=== PATIENT | female | born 1945 | race Caucasian/White ===

== ENCOUNTER 2019-06-15 06:57 | Outpatient (CLI) | payer MEDICARE, SELFPAY ==
[2019-06-15 07:25] LABS: Basophils Percent Auto 0.8 % (0.2-1.2); Eosinophils Percent Auto 1.3 % (0-4.4); Hematocrit 44.1 % (37.0-47.0); Hemoglobin 14.4 g/dL (12.0-15.0); Immature Granulocyte Absolute 0.01 K/mm3 (0.00-0.031); Immature Granulocyte Percent A 0.4 % (0-0.5); Immature Platelet Fraction Pct 6.6 % (0.9-11.2); Lymphocytes Absolute Auto 0.73 K/mm3 (0.9-3.2); Lymphocytes Percent Auto 30.5 % (18.3-44.2); Mean Corpuscular HGB Conc 32.7 g/dl (32-36); Mean Corpuscular Hemoglobin 30.4 pg (26-34); Mean Corpuscular Volume 93.2 fl (80-100); Mean Platelet Volume 11.4 fl (7.4-10.4); Monocytes Absolute Auto 0.3 K/mm3 (0.1-0.6); Monocytes Percent Auto 13.8 % (2.6-8.5); Neutrophils Absolute Auto 1.3 K/mm3 (1.3-6.7); Neutrophils Percent Auto 53.2 % (45.5-73.1); Platelet Count Result 123 k/mm3 (150-375); Red Blood Count 4.73 M/mm3 (4.2-5.4); Red Cell Distribution Width 11.9 % (11.5-14.5); White Blood Count 2.4 K/mm3 (4.5-10.0)
[2019-06-15 07:35] LABS: Alanine Aminotransferase 64 U/L (4-35); Albumin Level 4.3 g/dL (3.5-5.1); Alkaline Phosphatase 77 U/L (38-126); Aspartate Amino Transferase 68 U/L (14-36); Bilirubin,Total 0.6 mg/dL (0.2-1.3); Blood Urea Nitrogen 13 mg/dL (7-17); Calcium 9.2 mg/dL (8.4-10.2); Carbon Dioxide 31 mmol/L (22-30); Chloride 102 mmol/L (98-107); Cholesterol 192 mg/dL (0-200); Estimated Glomerular Filt Rate > 60; Glucose 88 mg/dL (65-105); HDL Direct 45 mg/dL; Lactate Dehydrogenase 518 U/L (313-618); Magnesium 1.8 mg/dL (1.6-2.3); Potassium 4.1 mmol/L (3.4-5.0); Sodium 138 mmol/L (137-145); Triglycerides 145 mg/dL (<150)
[2019-06-15 07:46] LABS: LDL Cholesterol Direct 111 mg/dL
[2019-06-15 08:20] LABS: Free T4 Free Thyroxine 1.44 ng/mL (0.78-2.19); Vitamin D 25 Hydroxy 61.7 ng/mL
[2019-06-15 08:46] LABS: Folic Acid > 20.0 ng/mL (2.76->20)
== END 2019-06-15 06:58 | disposition home or self-care (01) ==
LOC: ANHLAB 07:01
PROVIDERS: PCP Internal Medicine; Visit Provider Internal Medicine
DX: D64.9 Anemia, unspecified (principal); I10 Essential (primary) hypertension; E78.5 Hyperlipidemia, unspecified; E03.9 Hypothyroidism, unspecified; E53.8 Deficiency of other specified B group vitamins; E55.9 Vitamin D deficiency, unspecified
CPT/HCPCS: 36415; 80053; 80061; 82306; 82607; 82746; 83615; 83735; 84439; 84443; 85025; 85055

== ENCOUNTER 2019-10-02 01:27 | Outpatient (CLI) | payer MEDICARE, SELFPAY ==
[2019-10-02 18:35] LABS: SARS-CoV-2 RNA PCR Negative
== END 2019-10-02 01:28 | disposition home or self-care (01) ==
LOC: ANHCOVIDDT 01:28
PROVIDERS: PCP Internal Medicine; Visit Provider Internal Medicine Gastroenterology
DX: Z01.812 Encounter for preprocedural laboratory examination (principal); Z11.59 Encounter for screening for other viral diseases
CPT/HCPCS: 87635; C9803; U0003

== ENCOUNTER 2019-10-04 01:42 | Day surgery (SDC) | payer MEDICARE, SELFPAY ==
[2019-09-26 13:01] VITALS: BMI 26.5
[2019-10-04 09:03] VITALS: BP 149/80; PULSE 78; RESP 18; TEMP 36.3
--- NOTE | 2019-10-04 09:13 | PM.IMHP ---
H&P: HPI History of Present Illness Date/Time: 10/04/19 09:13 Chief complaint: Colon Polyp Narrative: Reason for visit is colonoscopy. This very pleasant lady's here for colonoscopy at the request of the primary physician. The patient was examined. Impression: Screening and surveillance colonoscopy. The patient's history adenomatous colon polyps. HLD. History of thyroiditis status post biopsy and levothyroxine treatment. Recommendation: Colonoscopy. History: Very pleasant lady's being evaluated for screening and surveillance colonoscopy. She has a history of numerous colon polyps. The GI review systems is negative. Physical examination: General: very pleasant patient in no acute distress. HEENT: Head was normocephalic sclerae is clear mouth without masses neck was supple. Heart: Rate rhythm regular without S3 or S4. Lungs: CTA. Abdomen: Soft with no guarding or rigidity. Bowel sounds were active. Neurologic: Cranial nerves 2 through 12 intact. No focal defects. No clonus. Musculoskeletal system: Revealed no joint tenderness or swelling no muscle atrophy. Extremities: Reveal no significant edema. Skin: Warm and dry with normal turgor. Mental status: intact. Patient is alert and oriented. Review of Systems Review of Systems: All systems reviewed & are unremarkable except as noted in HPI and below PMFSH Social History Social History Smoking status: Former smoker Second hand tobacco smoke exposure: No Smoking end date: 02/22/76 Alcohol intake: current Substance use: never Gender identity (if verbalized by the patient): Female Meds Home Medications and Allergies Home Medications Medication Instructions Recorded Confirmed Type L. gasseri-B. bifidum-B longum 1.5 1 cap PO DAILY 01/30/19 10/04/19 History billion cell capsule ascorbic acid (vitamin C) 500 mg 500 mg PO DAILY 01/30/19 10/04/19 History tablet calcium 600 mg-D3 800 unit-mag11 1 tablet PO DAILY 01/30/19 10/04/19 History 50 aa-huix-zdrzhd-rayna-s.borat tablet levothyroxine 112 mcg tablet 112 mcg PO DAILY 01/30/19 10/04/19 History multivitamin 1 tablet PO DAILY 01/30/19 10/04/19 History potassium iodide 65 mg tablet 130 mg PO DAILY 01/30/19 10/04/19 History rosuvastatin 5 mg tablet 5 mg PO DAILY 01/30/19 10/04/19 History calcium polycarbophil 625 mg tablet 1,250 mg PO BID 06/14/19 10/04/19 History lysine 500 mg tablet 500 mg PO DAILY 06/14/19 10/04/19 History Allergies Allergy/AdvReac Type Severity Reaction Status Date / Time No Known Allergies Allergy Unknown Verified 10/04/19 09:01 Vital Signs Vital Signs - 24 hr 10/04/19 09:03 Temperature 36.3 C L Pulse Rate 78 Respiratory Rate 18 Blood Pressure 149/80 H
[2019-10-04] MEDS: LACTATED RINGERS 1,000 ML 150 ML IV CONT (09:19)
--- NOTE | 2019-10-04 09:21 | WPDANESEPPF ---
Anes - Initial Pre Proc Eval Procedure: Operation Date: 10/04/19 09:30 Proposed Procedures p Colonoscopy - Willi Solano DO Date/Time: 10/04/19 09:21 Surgeon: Willi Solano DO Pre Op Diagnosis: Colon Polyp Patient Data Age: 74 Gender: F Height: 5 ft 3 in Weight: 70.2 kg Last Vital Signs Temp 36.3 C L 10/04/19 09:03 Pulse 78 10/04/19 09:03 Resp 18 10/04/19 09:03 BP 149/80 H 10/04/19 09:03 Allergies Allergy/AdvReac Type Severity Reaction Status Date / Time No Known Allergies Allergy Unknown Verified 10/04/19 09:01 Home Medications Medication Instructions Recorded Confirmed Type L. gasseri-B. bifidum-B longum 1.5 1 cap PO DAILY 01/30/19 10/04/19 History billion cell capsule ascorbic acid (vitamin C) 500 mg 500 mg PO DAILY 01/30/19 10/04/19 History tablet calcium 600 mg-D3 800 unit-mag11 1 tablet PO DAILY 01/30/19 10/04/19 History 50 ej-fixi-zqolsu-rayna-s.borat tablet levothyroxine 112 mcg tablet 112 mcg PO DAILY 01/30/19 10/04/19 History multivitamin 1 tablet PO DAILY 01/30/19 10/04/19 History potassium iodide 65 mg tablet 130 mg PO DAILY 01/30/19 10/04/19 History rosuvastatin 5 mg tablet 5 mg PO DAILY 01/30/19 10/04/19 History calcium polycarbophil 625 mg tablet 1,250 mg PO BID 06/14/19 10/04/19 History lysine 500 mg tablet 500 mg PO DAILY 06/14/19 10/04/19 History Patient hx anesthesia problems: none Family hx anesthesia problems: none PMFSH Past Medical History Medical History Anemia Elevated lipids Irritable bowel Thyroid disease Surgical History Surgical History H/O dilation and curettage H/O partial thyroidectomy H/O rotator cuff surgery History of knee replacement Hx of tonsillectomy [place] teeth removed Family History Family History Sibling Patient's sister is in good health Patient's brother is Father Patient's father is Carcinoma of colon Mother Family history of hypercholesterolemia Hypertension Cerebrovascular accident Social History Social History Smoking status: Former smoker Second hand tobacco smoke exposure: No Smoking end date: 02/22/76 Alcohol intake: current Substance use: never Gender identity (if verbalized by the patient): Female Anes - Eval Final PreProcedure Day of Procedure 10/04/19 09:21 Patient weight: overweight Heart: regular rate and rhythm Lungs: clear to auscultation Airway: Mallampati scale class II Neurological: alert and oriented Last oral intake: >/= 8 hours ASA classification: II Emergent: no Anesthetic plan: proceed Anesthesia type and monitoring: general GIVS and standard monitoring Informed Consent: The patient's anesthetic plan and its attendant risks and benefits were discussed with the patient/family/POA. Questions were solicited and answers provided to the satisfaction of the patient/family/POA.
[2019-10-04 10:20] VITALS: BP 84/44; PULSE 66; RESP 22; O2SAT 96
[2019-10-04 10:30] VITALS: BP 112/91; PULSE 72; RESP 22; O2SAT 96
[2019-10-04 10:40] VITALS: BP 117/62; PULSE 59; RESP 28; O2SAT 100
== END 2019-10-04 11:10 | disposition home or self-care (01) ==
PROVIDERS: PCP Internal Medicine; Visit Provider Internal Medicine Gastroenterology
PROC: 0DJD8ZZ Inspection of Lower Intestinal Tract, Via Natural or Artificial Opening Endoscopic (ICD-10-PCS; CPT 45378; principal; 2019-10-04 09:30)
DX: Z12.11 Encounter for screening for malignant neoplasm of colon (principal); D12.2 Benign neoplasm of ascending colon; K63.5 Polyp of colon; K57.30 Diverticulosis of large intestine without perforation or abscess without bleeding; E89.0 Postprocedural hypothyroidism; E78.5 Hyperlipidemia, unspecified; Z87.891 Personal history of nicotine dependence
CPT/HCPCS: 45380; 88305; J2001; J2704; J7120

== ENCOUNTER 2019-12-06 11:16 | Outpatient (CLI) | payer MEDICARE, SELFPAY ==
[2019-12-06 11:40] LABS: Basophils Percent Auto 0.4 % (0.2-1.2); Eosinophils Percent Auto 1.1 % (0-4.4); Hemoglobin 14.5 g/dL (12.0-15.0); Lymphocytes Absolute Auto 0.68 K/mm3 (0.9-3.2); Lymphocytes Percent Auto 25.8 % (18.3-44.2); Mean Corpuscular HGB Conc 34.5 g/dl (32-36); Mean Corpuscular Hemoglobin 31.7 pg (26-34); Mean Corpuscular Volume 91.7 fl (80-100); Monocytes Absolute Auto 0.4 K/mm3 (0.1-0.6); Neutrophils Absolute Auto 1.6 K/mm3 (1.3-6.7); Neutrophils Percent Auto 58.7 % (45.5-73.1); Platelet Count Result 144 k/mm3 (150-375); Red Blood Count 4.58 M/mm3 (4.2-5.4); White Blood Count 2.6 K/mm3 (4.5-10.0)
[2019-12-06 11:52] LABS: Alanine Aminotransferase 28 U/L (4-35); Albumin Level 4.3 g/dL (3.5-5.1); Alkaline Phosphatase 61 U/L (38-126); Anion Gap 7 mmol/L (8-16); Aspartate Amino Transferase 36 U/L (14-36); Bilirubin,Total 0.6 mg/dL (0.2-1.3); Blood Urea Nitrogen 15 mg/dL (7-17); Calcium 9.4 mg/dL (8.4-10.2); Carbon Dioxide 29 mmol/L (22-30); Chloride 102 mmol/L (98-107); Cholesterol 180 mg/dL (0-200); Estimated Glomerular Filt Rate > 60; Glucose 91 mg/dL (65-105); HDL Direct 48 mg/dL; Lactate Dehydrogenase 553 U/L (313-618); Sodium 138 mmol/L (137-145); Triglycerides 132 mg/dL (<150)
[2019-12-06 12:03] LABS: LDL Cholesterol Direct 106 mg/dL
[2019-12-06 12:33] LABS: Free T4 Free Thyroxine 1.27 ng/mL (0.78-2.19)
[2019-12-06 12:45] LABS: Hepatitis B Surface Antigen Negative (Negative)
[2019-12-06 12:51] LABS: HAV RESULT Negative (Negative); Hepatitis B Core IgM Result Negative (Negative)
[2019-12-06 13:03] LABS: Hepatitis C Virus Antibody Negative (Negative)
[2019-12-06 13:38] LABS: Folic Acid > 20.0 ng/mL (2.76->20)
== END 2019-12-06 11:17 | disposition home or self-care (01) ==
LOC: ANHLAB 11:18
PROVIDERS: PCP Internal Medicine; Visit Provider Internal Medicine
DX: D72.819 Decreased white blood cell count, unspecified (principal); R79.89 Other specified abnormal findings of blood chemistry; E03.9 Hypothyroidism, unspecified; E78.5 Hyperlipidemia, unspecified
CPT/HCPCS: 36415; 80053; 80061; 80074; 82607; 82746; 83615; 84439; 84443; 85025

== ENCOUNTER 2020-01-16 10:41 | Outpatient (CLI) | payer MEDICARE, SELFPAY ==
[2020-01-16 11:39] LABS: Add Urine Microscopic? YES; Appearance Urine Clear (Clear); Bilirubin Urine Negative (Negative); Blood Urine Negative (Negative); Color Urine Straw (Yellow); Glucose Urine UA Negative (Negative); Ketones Urine Negative (Negative); Leukocyte Esterase Ur Negative LEU/UL (Negative); Nitrate Urine Negative (Negative); Protein Urine Negative (Negative); RBC Urine 0-2 /hpf (0-2); Squamous Epithelial Cell Urine Rare /hpf (Few); Urobilinogen Urine Negative mg/dL (<2.0); WBC Urine 0-3 /hpf
== END 2020-01-16 10:42 | disposition home or self-care (01) ==
LOC: ANHLAB 10:42
PROVIDERS: PCP Internal Medicine; Visit Provider Internal Medicine
DX: R31.9 Hematuria, unspecified (principal)
CPT/HCPCS: 81001

== ENCOUNTER 2020-06-03 07:27 | Outpatient (CLI) | payer MEDICARE, SELFPAY ==
--- NOTE | ~2020-06-03 | MM_ITS ---
EXAMINATION: MM screening [facility] BI w akash HISTORY: Screening TECHNIQUE: Craniocaudal and mediolateral oblique 3-D tomosynthesis images were obtained and synthetic 2-D images were generated. CAD analysis was submitted and interpreted. COMPARISON: Comparison to multiple prior studies sequentially, with oldest reviewed study dated 10/2015. BREAST PARENCHYMAL COMPOSITION: There are scattered areas of fibroglandular density. FINDINGS: There is a subtle increase in number of indeterminate clustered calcifications in the upper outer quadrant of the left breast, middle third. The right breast is stable without evidence for mal ignancy. IMPRESSION: 1. Increase number of indeterminate clustered left breast calcifications, upper outer quadrant. 2. Magnification views recommended. BI-RADS Category 0: Incomplete: Needs additional imaging evaluation. Reviewed, dictated and finalized at location A.
== END 2020-06-03 07:28 | disposition home or self-care (01) ==
PROVIDERS: PCP Internal Medicine; Visit Provider Obstetrics & Gynecology
DX: Z12.31 Encounter for screening mammogram for malignant neoplasm of breast (principal); R92.8 Other abnormal and inconclusive findings on diagnostic imaging of breast
CPT/HCPCS: 77063; 77067

== ENCOUNTER 2020-06-27 12:28 | Outpatient (CLI) | payer MEDICARE, SELFPAY ==
--- NOTE | ~2020-06-27 | MM_ITS ---
EXAMINATION: MM diagnostic [facility] LT w akash HISTORY: Follow-up left breast calcifications TECHNIQUE: Additional 3-D tomosynthesis images of the left breast were performed and synthetic 2-D im ages were generated. CAD analysis was submitted and interpreted. COMPARISON: Comparison to multiple prior studies sequentially, with oldest reviewed study dated 01/21. BREAST PARENCHYMAL COMPOSITION: The breasts are heterogenously dense, which may obscure small masses. FINDINGS: There are benign-appearing scattered punctate calcifications in the upper aspect of the lef t breast which are not specifically clustered. There are no suspicious masses or architectural distor tion. IMPRESSION: 1. No evidence for malignancy in the left breast. Benign left breast calcifications. 2. Routine yearly screening mammogram and regular clinical breast examination are recommended. BI-RADS Category 2: Benign finding(s). Reviewed, dictated and finalized at location A. IMPRESSION: 1. No evidence for malignancy in the left breast. Benign left breast calcificat ions. 2. Routine yearly screening mammogram and regular clinical breast examination a re recommended. BI-RADS Category 2: Benign finding(s).
== END 2020-06-27 12:29 | disposition home or self-care (01) ==
PROVIDERS: PCP Internal Medicine; Visit Provider Obstetrics & Gynecology
DX: R92.8 Other abnormal and inconclusive findings on diagnostic imaging of breast (principal)
CPT/HCPCS: 77061; 77065; G0279

== ENCOUNTER 2020-08-01 06:47 | Outpatient (CLI) | payer MEDICARE, SELFPAY ==
[2020-08-01 07:51] LABS: Basophils Percent Auto 0.5 % (0.2-1.2); Eosinophils Percent Auto 0.9 % (0-4.4); Hematocrit 40.3 % (37.0-47.0); Hemoglobin 13.1 g/dL (12.0-15.0); Immature Granulocyte Absolute 0.27 K/mm3 (0.00-0.031); Immature Granulocyte Percent A 12.6 % (0-0.5); Lymphocytes Percent Auto 27.9 % (18.3-44.2); Mean Corpuscular HGB Conc 32.5 g/dl (32-36); Mean Corpuscular Hemoglobin 30.3 pg (26-34); Mean Corpuscular Volume 93.1 fl (80-100); Mean Platelet Volume 11.2 fl (7.4-10.4); Monocytes Absolute Auto 0.4 K/mm3 (0.1-0.6); Neutrophils Absolute Auto 0.8 K/mm3 (1.3-6.7); Neutrophils Percent Auto 38.1 % (45.5-73.1); Platelet Count Result 125 k/mm3 (150-375); Red Blood Count 4.33 M/mm3 (4.2-5.4); Red Cell Distribution Width 11.9 % (11.5-14.5); White Blood Count 2.2 K/mm3 (4.5-10.0)
[2020-08-01 09:32] LABS: Alanine Aminotransferase 23 U/L (4-35); Albumin Level 3.9 g/dL (3.5-5.1); Alkaline Phosphatase 46 U/L (38-126); Anion Gap 8 mmol/L (8-16); Aspartate Amino Transferase 35 U/L (14-36); Bilirubin,Total 0.4 mg/dL (0.2-1.3); Blood Urea Nitrogen 16 mg/dL (7-17); Carbon Dioxide 27 mmol/L (22-30); Chloride 107 mmol/L (98-107); Cholesterol 130 mg/dL (0-200); Estimated Glomerular Filt Rate > 60; Glucose 95 mg/dL (65-105); HDL Direct 43 mg/dL; Sodium 142 mmol/L (137-145); Triglycerides 62 mg/dL (<150)
[2020-08-01 09:42] LABS: LDL Cholesterol Direct 62 mg/dL
[2020-08-01 10:02] LABS: Thyroid Stimulating Hormone < 0.015 uIU/mL (0.465-4.680)
[2020-08-01 12:27] LABS: Folic Acid > 20.0 ng/mL (2.76->20)
[2020-08-01 12:50] LABS: Free T4 Free Thyroxine 1.48 ng/mL (0.78-2.19)
== END 2020-08-01 06:48 | disposition home or self-care (01) ==
PROVIDERS: PCP Internal Medicine; Visit Provider Internal Medicine
DX: R53.83 Other fatigue (principal); E03.9 Hypothyroidism, unspecified; E78.5 Hyperlipidemia, unspecified
CPT/HCPCS: 36415; 80053; 80061; 82607; 82746; 84439; 84443; 85025

== ENCOUNTER 2020-08-20 15:47 | Outpatient (CLI) | payer MEDICARE, SELFPAY ==
[2020-08-20 16:31] LABS: Basophils Percent Auto 0.4 % (0.2-1.2); Eosinophils Percent Auto 1.2 % (0-4.4); Hematocrit 41.6 % (37.0-47.0); Hemoglobin 13.5 g/dL (12.0-15.0); Immature Granulocyte Absolute 0.26 K/mm3 (0.00-0.031); Immature Granulocyte Percent A 10.5 % (0-0.5); Lymphocytes Absolute Auto 0.74 K/mm3 (0.9-3.2); Lymphocytes Percent Auto 29.8 % (18.3-44.2); Mean Corpuscular HGB Conc 32.5 g/dl (32-36); Mean Corpuscular Hemoglobin 29.7 pg (26-34); Mean Corpuscular Volume 91.6 fl (80-100); Monocytes Absolute Auto 0.5 K/mm3 (0.1-0.6); Monocytes Percent Auto 19.4 % (2.6-8.5); Neutrophils Percent Auto 38.7 % (45.5-73.1); Platelet Count Result 124 k/mm3 (150-375); Red Blood Count 4.54 M/mm3 (4.2-5.4); Red Cell Distribution Width 11.9 % (11.5-14.5); White Blood Count 2.5 K/mm3 (4.5-10.0)
[2020-08-20 16:38] LABS: Alanine Aminotransferase 52 U/L (4-35); Albumin Level 4.3 g/dL (3.5-5.1); Alkaline Phosphatase 81 U/L (38-126); Anion Gap 8 mmol/L (8-16); Aspartate Amino Transferase 56 U/L (14-36); Bilirubin,Total 0.4 mg/dL (0.2-1.3); Blood Urea Nitrogen 10 mg/dL (7-17); Calcium 9.3 mg/dL (8.4-10.2); Carbon Dioxide 29 mmol/L (22-30); Chloride 105 mmol/L (98-107); Estimated Glomerular Filt Rate > 60; Glucose 96 mg/dL (65-105); Lactate Dehydrogenase 506 U/L (313-618); Potassium 3.7 mmol/L (3.4-5.0); Sodium 142 mmol/L (137-145)
[2020-08-20 17:05] LABS: Iron 76 ug/dL (37-170)
[2020-08-20 17:15] LABS: Percent Iron Saturation 22 % (20-50)
[2020-08-20 17:46] LABS: Folic Acid > 20.0 ng/mL (2.76->20)
[2020-08-28 17:02] LABS: Platelet Ab,Indirect (IgA) POSITIVE (NEGATIVE); Platelet Ab,Indirect (IgG) NEGATIVE (NEGATIVE); Platelet Ab,Indirect (IgM) NEGATIVE (NEGATIVE)
== END 2020-08-20 15:48 | disposition home or self-care (01) ==
PROVIDERS: PCP Internal Medicine; Visit Provider Internal Medicine Hematology & Oncology
DX: D69.59 Other secondary thrombocytopenia (principal)
CPT/HCPCS: 36415; 80053; 82607; 82728; 82746; 83540; 83550; 83615; 85025; 86022

== ENCOUNTER → 2020-09-01 07:40 | Outpatient (CLI) | payer MEDICARE, SELFPAY ==
--- NOTE | ~2020-09-01 | US_ITS ---
EXAMINATION: US abdomen complete DATE: 09/01/2020 08:09 INDICATION: Other secondary thrombocytopenia. TECHNIQUE: Multiple grayscale and Doppler ultrasound images of the abdomen were obtained. COMPARISON: Chest CT 08/20/2014 FINDINGS: Abdominal aorta is normal in caliber. Inferior vena cava is normal. The visualized portions of the head, body, and tail of the pancreas are normal. The liver is normal without focal lesion. No liver surface nodularity. There is normal flow in main portal vein. The gallbladder is normal in siz e. No gallstones or gallbladder wall thickening. There was no sonographic Leung sign. The common leatha t is normal and measures 3 mm. The kidneys are normal in size. The spleen is normal in size and measu res 9.8 cm. IMPRESSION: 1. Normal complete abdomen ultrasound. Reviewed, dictated and finalized at location A.
== END ==
PROVIDERS: PCP Internal Medicine; Visit Provider Internal Medicine Hematology & Oncology
DX: D69.59 Other secondary thrombocytopenia (principal)
CPT/HCPCS: 76700

== ENCOUNTER → 2020-09-09 02:22 | Outpatient (CLI) | payer MEDICARE, SELFPAY ==
[2020-09-09 17:52] LABS: SARS-CoV-2 RNA PCR Negative
== END ==
PROVIDERS: PCP Internal Medicine; Visit Provider Internal Medicine Hematology & Oncology
DX: Z01.812 Encounter for preprocedural laboratory examination (principal); Z20.822 Contact with and (suspected) exposure to COVID-19
CPT/HCPCS: C9803; U0003; U0005

== ENCOUNTER 2020-09-12 02:32 | Day surgery (SDC) | payer MEDICARE, SELFPAY ==
[2020-09-12] VITALS (9 sets, daily range): BP systolic 118–170; BP diastolic 55–100; PULSE 52–72; RESP 10–20; TEMP 35.6–35.7; O2SAT 95–98
--- NOTE | ~2020-09-12 | BM_ITS ---
EXAMINATION: CCL bone marrow asp w bx diag ORDER COMPLETED DATE: 09/12/2020 09:09 INDICATION: Thrombocytopenia TECHNIQUE: A time-out was performed to verify the patient's name, date of , and procedure to b e performed. The procedure including the risks, benefits, and alternatives was discussed with the pat ient. Risks discussed included bleeding and infection. The patient understood the risks and agreed to proceed. The skin overlying the right posterior iliac spine was prepped and draped in usual sterile fashion. Anesthetic was administered with 1% lidocaine subcutaneously. Systemic analgesia was provide d with 50 mcg fentanyl IV. An 11 gauge needle was inserted into the ilium with fluoroscopic guidance. Bone marrow was aspirated. An 8 gauge needle was then inserted into the ilium with fluoroscopic guid ance. A core bone marrow biopsy was obtained. There were no immediate complications. Fluoroscopy expo sure time was 0.1 minutes. The total number of images was 6. FINDINGS: Real-time fluoroscopy demonstrates a marker overlying the right posterior iliac spine. IMPRESSION: 1. Successful fluoro-guided bone marrow aspiration. 2. Successful fluoro-guided bone marrow core biopsy. Reviewed, dictated and finalized at location A.
[2020-09-12 08:14] LABS: INR 0.9; Prothrombin Time 11.8 Seconds (11.1-14.7)
[2020-09-12 08:16] LABS: Basophils Percent Auto 0.4 % (0.2-1.2); Eosinophils Percent Auto 0.8 % (0-4.4); Hematocrit 44.3 % (37.0-47.0); Hemoglobin 14.4 g/dL (12.0-15.0); Immature Granulocyte Absolute 0.27 K/mm3 (0.00-0.031); Immature Granulocyte Percent A 10.7 % (0-0.5); Immature Platelet Fraction Pct 8.9 % (0.9-11.2); Lymphocytes Absolute Auto 0.65 K/mm3 (0.9-3.2); Lymphocytes Percent Auto 25.7 % (18.3-44.2); Mean Corpuscular HGB Conc 32.5 g/dl (32-36); Mean Corpuscular Hemoglobin 30.1 pg (26-34); Mean Corpuscular Volume 92.5 fl (80-100); Mean Platelet Volume 11.6 fl (7.4-10.4); Monocytes Absolute Auto 0.5 K/mm3 (0.1-0.6); Monocytes Percent Auto 20.6 % (2.6-8.5); Neutrophils Absolute Auto 1.1 K/mm3 (1.3-6.7); Neutrophils Percent Auto 41.8 % (45.5-73.1); Platelet Count Result 126 k/mm3 (150-375); Red Blood Count 4.79 M/mm3 (4.2-5.4); Red Cell Distribution Width 12.3 % (11.5-14.5); White Blood Count 2.5 K/mm3 (4.5-10.0)
--- NOTE | 2020-09-12 08:34 | WPDMODSED ---
Moderate Sedation Note-Pt Data Patient Data Allergies Allergy/AdvReac Type Severity Reaction Status Date / Time No Known Allergies Allergy Unknown Verified 09/03/20 08:57 Home Medications Medication Instructions Recorded Confirmed Type ascorbic acid (vitamin C) 500 mg 500 mg PO DAILY 01/30/19 09/12/20 History tablet calcium 600 mg-D3 800 unit-mag11 1 tablet PO DAILY 01/30/19 09/12/20 History 50 sl-rlzx-bxenat-rayna-s.borat tablet multivitamin 1 tablet PO DAILY 01/30/19 09/12/20 History rosuvastatin 5 mg tablet 5 mg PO DAILY 01/30/19 09/12/20 History calcium polycarbophil 625 mg tablet 1,250 mg PO BID 06/14/19 09/12/20 History lysine 500 mg tablet 500 mg PO DAILY 06/14/19 09/12/20 History levothyroxine 112 mcg capsule 112 mcg PO DAILY 09/03/20 09/12/20 History aspirin 81 mg PO DAILY 09/12/20 09/12/20 History Current Medications: Active Medications Sodium Chloride (Normal Saline Iv) 500 mls @ 30 mls/hr IV CONT .[id number] THERESA Sedation/Anesthesia: No previous sedation/anesthesia problems (including family history). [facility] Past Medical History Medical History Anemia Elevated lipids Hypertension Irritable bowel Thyroid disease Surgical History Surgical History H/O abdominoplasty H/O dilation and curettage H/O partial thyroidectomy H/O rotator cuff surgery History of knee replacement Hx of tonsillectomy [place] teeth removed Family History Family History Sibling Patient's sister is in good health Patient's brother is Cancer Father Patient's father is Carcinoma of colon Heart disease Mother Family history of hypercholesterolemia Hypertension Cerebrovascular accident Heart disease Social History Social History Smoking status: Former smoker Second hand tobacco smoke exposure: No Smoking end date: 02/22/76 Alcohol intake: current Substance use: never Gender identity (if verbalized by the patient): Female Mod Sed Physical Exam Physical Exam Pre Procedural Exam: Normal: Appearance, Neck, Airway, Lungs, Heart Rate, Heart Rhythm, Extremities and Skin Hours since solid foods: 13 Hours since liquid intake: 13 Mallampati Classification: class II Internal Medicine - PN: Obj Da Vital Signs Vital Signs: Vital Signs - 24 hr 09/12/20 08:20 Temperature 96.3 F L Pulse Rate 72 Respiratory Rate 10 L Blood Pressure 159/84 H Pulse Oximetry 98 Meds/Results Medications: Active Medications Generic Name Dose Route Start Last Admin Trade Name Freq PRN Reason Stop Dose Admin Sodium Chloride 500 mls @ 30 mls/hr 09/12/20 07:15 Normal Saline Iv IV CONT .[id number] THERESA Labs CBC & Chem 7: 09/12/20 07:30 Labs: Laboratory Results - last 24 hr 09/12/20 07:30 PT 11.8 INR 0.9 ASA Classification/Sedation ASA Classification/Sedation ASA Class: II Emergent: No Risks: Risks, benefits and alternatives explained and patient/family accepted plan for sedation. Patient re-evaluated immediately prior to sedation.
--- NOTE | 2020-09-12 10:11 | PC.NURSE ---
Sm amount of drng noted on right posterior hip drsg after bone marrow biopsy. HOB elevated to 25 degrees after one hour of laying flat. drng on drsg is not increasing. Pt complaining of right knee pain, somewhat typical of discomfort she has had in the past. positioned with pillow behind right knee.
--- NOTE | 2020-09-12 10:29 | SUR.PHASEII ---
Drsg to right posterior hip changed due to bleeding present on drsg. No further bleeding at site.Dry sterile bandage applied with pressure drsg secured over bandaid using sterile technique.
--- NOTE | 2020-09-12 14:48 | SUR.PHASEII ---
12:00 - IV d/c'd with catheter intact. No redness or swelling at the site. pt discharged to home with . Drsg clean dry and intact to right posterior hip. D/c instructions reviewed with both with stated understanding. Pt left via wheelchair to personal vehicle driven by spouse.
== END 2020-09-12 12:00 | disposition home or self-care (01) ==
PROVIDERS: PCP Internal Medicine; Referring Provider Internal Medicine Hematology & Oncology; Visit Provider Radiology Diagnostic Radiology
DX: D69.6 Thrombocytopenia, unspecified (principal); D64.9 Anemia, unspecified; I10 Essential (primary) hypertension; E07.9 Disorder of thyroid, unspecified; K58.9 Irritable bowel syndrome, unspecified
CPT/HCPCS: 36415; 38222; 85025; 85055; 85610; 88184; 88185; 88305; 88311; 88313; C9803; J1642; J2250; J3010; J7040; U0003; U0005

== ENCOUNTER 2020-09-19 10:48 | Outpatient (CLI) | payer MEDICARE, SELFPAY ==
[2020-09-19 11:09] LABS: Basophils Percent Auto 0.4 % (0.2-1.2); Eosinophils Percent Auto 0.8 % (0-4.4); Hematocrit 42.9 % (37.0-47.0); Immature Granulocyte Absolute 0.19 K/mm3 (0.00-0.031); Immature Granulocyte Percent A 7.6 % (0-0.5); Lymphocytes Absolute Auto 0.62 K/mm3 (0.9-3.2); Lymphocytes Percent Auto 24.9 % (18.3-44.2); Mean Corpuscular HGB Conc 32.6 g/dl (32-36); Mean Corpuscular Hemoglobin 29.8 pg (26-34); Mean Corpuscular Volume 91.3 fl (80-100); Mean Platelet Volume 10.6 fl (7.4-10.4); Monocytes Absolute Auto 0.4 K/mm3 (0.1-0.6); Monocytes Percent Auto 15.7 % (2.6-8.5); Neutrophils Absolute Auto 1.3 K/mm3 (1.3-6.7); Neutrophils Percent Auto 50.6 % (45.5-73.1); Platelet Count Result 149 k/mm3 (150-375); Red Cell Distribution Width 12.2 % (11.5-14.5); White Blood Count 2.5 K/mm3 (4.5-10.0)
[2020-09-19 11:17] LABS: Blood Urea Nitrogen 7 mg/dL (8-26); Carbon Dioxide 30 mmol/L (22-30); Chloride 102 mmol/L (98-109); Estimated Glomerular Filt Rate > 60; Glucose 96 mg/dL (70-105); Sodium 144 mmol/L (138-146)
[2020-09-19 11:20] LABS: Platelet Estimate Adequate (Adequate)
[2020-09-19 11:21] LABS: Atypical Lymphocytes Present
[2020-09-19 16:36] LABS: Alanine Aminotransferase 34 U/L (4-35); Albumin Level 4.5 g/dL (3.5-5.1); Alkaline Phosphatase 65 U/L (38-126); Anion Gap 7 mmol/L (8-16); Aspartate Amino Transferase 41 U/L (14-36); Bilirubin,Total 0.5 mg/dL (0.2-1.3); Blood Urea Nitrogen 8 mg/dL (7-17); Calcium 9.7 mg/dL (8.4-10.2); Carbon Dioxide 31 mmol/L (22-30); Chloride 103 mmol/L (98-107); Estimated Glomerular Filt Rate > 60; Glucose 93 mg/dL (65-110); Potassium 4.2 mmol/L (3.4-5.0); Sodium 141 mmol/L (137-145)
== END 2020-09-19 10:49 | disposition home or self-care (01) ==
LOC: ANHLAB 10:55
PROVIDERS: PCP Internal Medicine; Visit Provider Internal Medicine Hematology & Oncology
DX: D72.819 Decreased white blood cell count, unspecified (principal)
CPT/HCPCS: 36415; 80048; 80053; 85025

== ENCOUNTER 2020-10-10 12:04 | Outpatient (CLI) | payer MEDICARE, SELFPAY ==
--- NOTE | ~2020-10-10 | US_ITS ---
EXAMINATION: US venous doppler LE RT DATE: 10/10/2020 13:16 INDICATION: Right lower limb pain. TECHNIQUE: Grayscale ultrasound images without and with compression and Doppler ultrasound images of the right lower extremity veins were obtained. COMPARISON: None. FINDINGS: The visualized portions of right common femoral vein, profunda (deep) femoral vein, femoral vein, pop liteal vein, peroneal veins, posterior tibial veins, and greater saphenous vein outflow are patent. IMPRESSION: 1. No deep venous thrombosis. Reviewed, dictated and finalized at location B.
== END 2020-10-10 12:05 | disposition home or self-care (01) ==
LOC: ANHIMG 12:11
PROVIDERS: PCP Internal Medicine; Visit Provider Internal Medicine Hematology & Oncology
DX: M79.604 Pain in right leg (principal)
CPT/HCPCS: 93971

== ENCOUNTER 2020-12-05 12:52 | Outpatient (CLI) | payer MEDICARE, SELFPAY ==
[2020-12-05 13:10] LABS: Hematocrit 41.2 % (37.0-47.0); Hemoglobin 13.6 g/dL (12.0-15.0); Mean Corpuscular Hemoglobin 30.2 pg (26-34); Mean Corpuscular Volume 91.4 fl (80-100); Mean Platelet Volume 11.5 fl (7.4-10.4); Platelet Count Result 154 k/mm3 (150-375); Red Blood Count 4.51 M/mm3 (4.2-5.4); Red Cell Distribution Width 12.4 % (11.5-14.5)
[2020-12-05 13:30] LABS: Band Neutrophils Percent 4 % (0-6); Lymphocytes Absolute Manual 1.05 K/mm3 (1.1-4.5); Monocytes Absolute Manual 0.39 K/mm3 (0.1-0.90); Monocytes Percent Manual 13 % (3-9); Neutrophils Absolute Manual 1.56 K/mm3 (1.7-7.2); Neutrophils Percent Manual 48 % (46-73); Platelet Estimate Adequate (Adequate); Total Cells Counted 100
[2020-12-05 14:34] LABS: Alanine Aminotransferase 57 U/L (4-35); Albumin Level 4.6 g/dL (3.5-5.1); Alkaline Phosphatase 59 U/L (38-126); Anion Gap 7 mmol/L (8-16); Aspartate Amino Transferase 71 U/L (14-36); Bilirubin,Total 0.7 mg/dL (0.2-1.3); Blood Urea Nitrogen 10 mg/dL (7-17); Calcium 9.4 mg/dL (8.4-10.2); Carbon Dioxide 30 mmol/L (22-30); Chloride 104 mmol/L (98-107); Estimated Glomerular Filt Rate > 60; Glucose 100 mg/dL (65-110); Sodium 141 mmol/L (137-145)
== END 2020-12-05 12:53 | disposition home or self-care (01) ==
LOC: ANHLAB 12:54
PROVIDERS: PCP Internal Medicine; Visit Provider Internal Medicine Hematology & Oncology
DX: D72.819 Decreased white blood cell count, unspecified (principal)
CPT/HCPCS: 36415; 80053; 85025

== ENCOUNTER 2021-01-19 06:37 | Outpatient (CLI) | payer MEDICARE, SELFPAY ==
[2021-01-19 07:38] LABS: Free T4 Free Thyroxine 1.21 ng/mL (0.78-2.19)
== END 2021-01-19 06:38 | disposition home or self-care (01) ==
PROVIDERS: PCP Internal Medicine; Visit Provider Physician Assistant
DX: E03.9 Hypothyroidism, unspecified (principal)
CPT/HCPCS: 36415; 84439; 84443

== ENCOUNTER 2021-06-02 08:21 | Outpatient (CLI) | payer MEDICARE, SELFPAY ==
[2021-06-02 08:36] LABS: Basophils Percent Auto 0.9 % (0.2-1.2); Eosinophils Percent Auto 0.4 % (0-4.4); Hematocrit 43.5 % (37.0-47.0); Hemoglobin 13.8 g/dL (12.0-15.0); Immature Granulocyte Absolute 0.14 K/mm3 (0.00-0.031); Immature Granulocyte Percent A 6.2 % (0-0.5); Lymphocytes Absolute Auto 0.58 K/mm3 (0.9-3.2); Lymphocytes Percent Auto 25.8 % (18.3-44.2); Mean Corpuscular HGB Conc 31.7 g/dl (32-36); Mean Corpuscular Hemoglobin 30.1 pg (26-34); Mean Platelet Volume 10.6 fl (7.4-10.4); Monocytes Absolute Auto 0.4 K/mm3 (0.1-0.6); Monocytes Percent Auto 18.2 % (2.6-8.5); Neutrophils Absolute Auto 1.1 K/mm3 (1.3-6.7); Neutrophils Percent Auto 48.5 % (45.5-73.1); Platelet Count Result 155 k/mm3 (150-375); Red Blood Count 4.58 M/mm3 (4.2-5.4); Red Cell Distribution Width 11.9 % (11.5-14.5); White Blood Count 2.3 K/mm3 (4.5-10.0)
[2021-06-02 08:49] LABS: Blood Urea Nitrogen 9 mg/dL (8-26); Carbon Dioxide 29 mmol/L (22-30); Chloride 102 mmol/L (98-109); Estimated Glomerular Filt Rate > 60; Glucose 90 mg/dL (70-105); Potassium 3.7 mmol/L (3.5-4.9); Sodium 142 mmol/L (138-146)
[2021-06-02 10:14] LABS: Alanine Aminotransferase 44 U/L (4-35); Albumin Level 4.6 g/dL (3.5-5.1); Alkaline Phosphatase 74 U/L (38-126); Anion Gap 9 mmol/L (8-16); Aspartate Amino Transferase 40 U/L (14-36); Bilirubin,Total 0.8 mg/dL (0.2-1.3); Blood Urea Nitrogen 11 mg/dL (7-17); Carbon Dioxide 27 mmol/L (22-30); Chloride 104 mmol/L (98-107); Estimated Glomerular Filt Rate > 60; Glucose 91 mg/dL (65-110); Potassium 3.7 mmol/L (3.4-5.0); Sodium 140 mmol/L (137-145)
== END 2021-06-02 08:22 | disposition home or self-care (01) ==
LOC: ANHLAB 08:22
PROVIDERS: PCP Internal Medicine; Visit Provider Internal Medicine Hematology & Oncology
DX: D72.819 Decreased white blood cell count, unspecified (principal)
CPT/HCPCS: 36415; 80053; 85025

== ENCOUNTER 2021-06-29 06:44 | Outpatient (CLI) | payer MEDICARE, SELFPAY ==
[2021-06-29 07:24] LABS: Basophils Percent Auto 0.4 % (0.2-1.2); Eosinophils Percent Auto 0.4 % (0-4.4); Hematocrit 40.7 % (37.0-47.0); Hemoglobin 13.7 g/dL (12.0-15.0); Immature Granulocyte Absolute 0.14 K/mm3 (0.00-0.031); Immature Granulocyte Percent A 5.6 % (0-0.5); Lymphocytes Absolute Auto 0.75 K/mm3 (0.9-3.2); Lymphocytes Percent Auto 29.8 % (18.3-44.2); Mean Corpuscular HGB Conc 33.7 g/dl (32-36); Mean Corpuscular Hemoglobin 31.1 pg (26-34); Mean Corpuscular Volume 92.3 fl (80-100); Mean Platelet Volume 10.2 fl (7.4-10.4); Monocytes Absolute Auto 0.5 K/mm3 (0.1-0.6); Monocytes Percent Auto 20.6 % (2.6-8.5); Neutrophils Absolute Auto 1.1 K/mm3 (1.3-6.7); Neutrophils Percent Auto 43.2 % (45.5-73.1); Platelet Count Result 141 k/mm3 (150-375); Red Blood Count 4.41 M/mm3 (4.2-5.4); Red Cell Distribution Width 12.1 % (11.5-14.5); White Blood Count 2.5 K/mm3 (4.5-10.0)
[2021-06-29 07:39] LABS: Alanine Aminotransferase 33 U/L (6-35); Albumin Level 4.4 g/dL (3.5-5.1); Alkaline Phosphatase 59 U/L (38-126); Anion Gap 5 mmol/L (8-16); Aspartate Amino Transferase 45 U/L (14-36); Bilirubin,Total 0.4 mg/dL (0.2-1.3); Blood Urea Nitrogen 14 mg/dL (7-17); Calcium 8.5 mg/dL (8.4-10.2); Carbon Dioxide 31 mmol/L (22-30); Chloride 104 mmol/L (98-107); Cholesterol 170 mg/dL (0-200); Estimated Glomerular Filt Rate > 60; Glucose 97 mg/dL (65-110); HDL Direct 53 mg/dL; Potassium 4.1 mmol/L (3.4-5.0); Sodium 140 mmol/L (137-145); Triglycerides 65 mg/dL (<150)
[2021-06-29 07:50] LABS: LDL Cholesterol Direct 84 mg/dL
[2021-06-29 08:26] LABS: Free T4 Free Thyroxine 1.49 ng/mL (0.78-2.19)
[2021-06-29 08:53] LABS: Folic Acid > 20.0 ng/mL (2.76->20)
== END 2021-06-29 06:45 | disposition home or self-care (01) ==
PROVIDERS: PCP Internal Medicine; Visit Provider Internal Medicine
DX: E03.9 Hypothyroidism, unspecified (principal); E78.5 Hyperlipidemia, unspecified; R79.89 Other specified abnormal findings of blood chemistry
CPT/HCPCS: 36415; 80053; 80061; 82607; 82746; 84439; 84443; 85025

== ENCOUNTER 2021-08-05 08:07 | Outpatient (CLI) | payer MEDICARE, SELFPAY ==
--- NOTE | ~2021-08-05 | MM_ITS ---
EXAMINATION: MM screening [facility] BI w akash HISTORY: Screening TECHNIQUE: Craniocaudal and mediolateral oblique 3-D tomosynthesis images were obtained and synthetic 2-D images were generated. CAD analysis was submitted and interpreted. COMPARISON: Comparison to multiple prior studies sequentially, with oldest reviewed study dated 01/21. BREAST PARENCHYMAL COMPOSITION: The breasts are heterogenously dense, which may obscure small masses FINDINGS: There is no evidence of suspicious mass, calcification, or architectural distortion to sugg est malignancy in either breast. There has been no suspicious interval change. IMPRESSION: 1. No mammographic evidence of malignancy. 2. Recommend routine screening mammography in one year. BI-RADS Category 1: Negative Reviewed, dictated and finalized at location A.
== END 2021-08-05 08:08 | disposition home or self-care (01) ==
LOC: ANHIMG 08:08
PROVIDERS: PCP Internal Medicine; Visit Provider Obstetrics & Gynecology
DX: Z12.31 Encounter for screening mammogram for malignant neoplasm of breast (principal)
CPT/HCPCS: 77063; 77067

== ENCOUNTER 2021-08-21 12:22 | Outpatient (CLI) | payer MEDICARE, SELFPAY ==
--- NOTE | ~2021-08-21 | US_ITS ---
EXAMINATION: US carotid duplex BI DATE: 08/21/2021 13:32 INDICATION: Atherosclerosis. Carotid artery disease. TECHNIQUE: Grayscale, color Doppler, and pulsed Doppler images of the cervical carotid arteries were obtained. The degree of vessel stenosis is placed in one of the following categories: normal, <50%, 5 0-69%, >=70% but less than near-occlusion, near-occlusion, or total occlusion. Note that percent sten osis relative to normal distal artery lumen diameter is indirectly measured from velocity measurement s as described by Salvatore, et al. Radiology 2003; 229:340-346. Notes: Normal: Peak systolic velocity <125 centimeters/sec and no plaque <50%. Peak systolic velocity <125 ( EDV <40; ICA/CCA PSV ratio <2.0; used these factors only a tandem lesions or low cardiac output or co ntralateral disease) 50-69 %: PSV 125-230 (EDV 40-100; ratio 2-4) >= 70% but less than near occlusion: PSV greater than 230 (EDV > 100; ratio> 4.0) Near Occlusion: PSV that is variable; markedly narrowed lumen Occlusion: Absent flow on color/spectral Doppler and no lumen on june scale. COMPARISON: None. FINDINGS: RIGHT: The right common carotid artery (CCA) peak systolic velocity (PSV) is 91 cm/s. The right internal car otid artery (ICA) PSV is 117 cm/s. The right ICA end-diastolic velocity (EDV) is 33 cm/s. The right I CA/CCA PSV ratio is 1.3. The external carotid artery (ECA) PSV is 158 cm/s. There is antegrade flow i n the right vertebral artery. LEFT: The left CCA PSV is 71 cm/s. The left ICA PSV is 93 cm/s. The left ICA EDV is 29 cm/s. The left ICA/C CA PSV ratio is 1.3. The ECA PSV is 93 cm/s. There is antegrade flow in the left vertebral artery. IMPRESSION: 1. Less than 50% stenosis in the right internal carotid artery by sonographic criteria. 2. Less than 50% stenosis in the left internal carotid artery by sonographic criteria. Reviewed, dictated and finalized at location A. IMPRESSION: 1. Less than 50% stenosis in the right internal carotid artery by sonographic c edwineria. 2. Less than 50% stenosis in the left internal carotid artery by sonographic cr thad.
== END 2021-08-21 12:23 | disposition home or self-care (01) ==
LOC: ANHIMG 12:23
PROVIDERS: PCP Internal Medicine; Visit Provider Internal Medicine
DX: I65.23 Occlusion and stenosis of bilateral carotid arteries (principal)
CPT/HCPCS: 93880

== ENCOUNTER 2021-12-01 09:06 | Outpatient (CLI) | payer MEDICARE, SELFPAY ==
[2021-12-01 09:24] LABS: Hematocrit 42.2 % (37.0-47.0); Hemoglobin 13.9 g/dL (12.0-15.0); Mean Corpuscular HGB Conc 32.9 g/dl (32-36); Mean Corpuscular Hemoglobin 30.3 pg (26-34); Mean Corpuscular Volume 91.9 fl (80-100); Mean Platelet Volume 10.6 fl (7.4-10.4); Platelet Count Result 144 k/mm3 (150-375); Red Blood Count 4.59 M/mm3 (4.2-5.4); Red Cell Distribution Width 12.2 % (11.5-14.5); White Blood Count 2.3 K/mm3 (4.5-10.0)
[2021-12-01 09:27] LABS: Blood Urea Nitrogen 8 mg/dL (8-26); Carbon Dioxide 30 mmol/L (22-30); Chloride 103 mmol/L (98-109); Estimated Glomerular Filt Rate > 60; Glucose 78 mg/dL (70-105); Ionized Calcium (POC) 1.25 mmol/L (1.11-1.31); Potassium 3.9 mmol/L (3.5-4.9); Sodium 142 mmol/L (138-146)
[2021-12-01 09:31] LABS: Band Neutrophils Percent 2 % (0-6); Lymphocytes Absolute Manual 0.59 K/mm3 (1.1-4.5); Monocytes Absolute Manual 0.32 K/mm3 (0.1-0.90); Monocytes Percent Manual 14 % (3-9); Neutrophils Absolute Manual 1.38 K/mm3 (1.7-7.2); Neutrophils Percent Manual 58 % (46-73); Schistocytes None Seen (NORMAL); Total Cells Counted 50
[2021-12-01 12:07] LABS: Alanine Aminotransferase 28 U/L (6-35); Albumin Level 4.4 g/dL (3.5-5.1); Alkaline Phosphatase 64 U/L (38-126); Anion Gap 9 mmol/L (8-16); Aspartate Amino Transferase 33 U/L (14-36); Bilirubin,Total 0.7 mg/dL (0.2-1.3); Blood Urea Nitrogen 10 mg/dL (7-17); Calcium 9.1 mg/dL (8.4-10.2); Carbon Dioxide 28 mmol/L (22-30); Chloride 103 mmol/L (98-107); Estimated Glomerular Filt Rate > 60; Glucose 75 mg/dL (65-110); Potassium 3.9 mmol/L (3.4-5.0); Sodium 140 mmol/L (137-145)
== END 2021-12-01 09:07 | disposition home or self-care (01) ==
LOC: ANHLAB 09:07
PROVIDERS: PCP Internal Medicine; Visit Provider Internal Medicine Hematology & Oncology
DX: D72.819 Decreased white blood cell count, unspecified (principal)
CPT/HCPCS: 36415; 80047; 80053; 85025

== ENCOUNTER 2022-06-08 07:38 | Outpatient (CLI) | payer MEDICARE, SELFPAY ==
[2022-06-08 09:01] LABS: Basophils Percent Auto 0.7 % (0.2-1.2); Eosinophils Percent Auto 0.3 % (0-4.4); Hematocrit 42.9 % (37.0-47.0); Hemoglobin 14.4 g/dL (12.0-15.0); Immature Granulocyte Absolute 0.04 K/mm3 (0.00-0.031); Immature Granulocyte Percent A 1.4 % (0-0.5); Lymphocytes Absolute Auto 0.51 K/mm3 (0.9-3.2); Lymphocytes Percent Auto 17.8 % (18.3-44.2); Mean Corpuscular HGB Conc 33.6 g/dl (32-36); Mean Corpuscular Hemoglobin 30.4 pg (26-34); Mean Corpuscular Volume 90.7 fl (80-100); Mean Platelet Volume 10.5 fl (7.4-10.4); Monocytes Absolute Auto 0.7 K/mm3 (0.1-0.6); Monocytes Percent Auto 23.3 % (2.6-8.5); Neutrophils Absolute Auto 1.6 K/mm3 (1.3-6.7); Neutrophils Percent Auto 56.5 % (45.5-73.1); Platelet Count Result 144 k/mm3 (150-375); Red Blood Count 4.73 M/mm3 (4.2-5.4); Red Cell Distribution Width 12.1 % (11.5-14.5); White Blood Count 2.9 K/mm3 (4.5-10.0)
[2022-06-08 09:13] LABS: Iron 103 ug/dL (37-170)
[2022-06-08 09:14] LABS: Alanine Aminotransferase 27 U/L (6-35); Albumin Level 4.4 g/dL (3.5-5.1); Alkaline Phosphatase 66 U/L (38-126); Anion Gap 3 mmol/L (8-16); Aspartate Amino Transferase 33 U/L (14-36); Bilirubin,Total 0.6 mg/dL (0.2-1.3); Blood Urea Nitrogen 12 mg/dL (7-17); Calcium 9.1 mg/dL (8.4-10.2); Carbon Dioxide 34 mmol/L (22-30); Chloride 104 mmol/L (98-107); Estimated Glomerular Filt Rate > 60; Glucose 81 mg/dL (65-110); Sodium 141 mmol/L (137-145)
[2022-06-08 09:24] LABS: Percent Iron Saturation 27 % (20-50)
[2022-06-08 10:36] LABS: Folic Acid > 20.0 ng/mL (2.76->20)
== END 2022-06-08 07:39 | disposition home or self-care (01) ==
PROVIDERS: PCP Internal Medicine; Visit Provider Internal Medicine Hematology & Oncology
DX: D69.59 Other secondary thrombocytopenia (principal)
CPT/HCPCS: 36415; 80053; 82607; 82728; 82746; 83540; 83550; 85025

== ENCOUNTER 2022-08-23 13:14 | Outpatient (CLI) | payer MEDICARE, SELFPAY ==
--- NOTE | ~2022-08-23 | US_ITS ---
EXAMINATION: US carotid duplex BI DATE: 08/23/2022 14:06 INDICATION: Disorder of arteries. Carotid atherosclerosis and stenosis. TECHNIQUE: Grayscale, color Doppler, and pulsed Doppler images of the cervical carotid arteries were obtained. The degree of vessel stenosis is placed in one of the following categories: normal, <50%, 5 0-69%, >=70% but less than near-occlusion, near-occlusion, or total occlusion. Note that percent sten osis relative to normal distal artery lumen diameter is indirectly measured from velocity measurement s as described by Salvatore, et al. Radiology 2003; 229:340-346. COMPARISON: 08/21/2021 FINDINGS: RIGHT: The right common carotid artery (CCA) peak systolic velocity (PSV) is 94 cm/s. The right internal car otid artery (ICA) PSV is 116 cm/s. The right ICA end-diastolic velocity (EDV) is 35 cm/s. The right I CA/CCA PSV ratio is 1.2. Grayscale and color Doppler images yield an estimate of <50% diameter reduct ion from plaque in the ICA. The external carotid artery (ECA) PSV is 127 cm/s. There is antegrade rosaura w in the right vertebral artery. LEFT: The left CCA PSV is 96 cm/s. The left ICA PSV is 123 cm/s. The left ICA EDV is 39 cm/s. The left ICA/ CCA PSV ratio is 1.3. Grayscale and color Doppler images yield an estimate of <50% diameter reduction from plaque in the ICA. The ECA PSV is 94 cm/s. There is antegrade flow in the left vertebral artery . IMPRESSION: 1. <50% stenosis in the right internal carotid artery. 2. <50% stenosis in the left internal carotid artery. Reviewed, dictated and finalized at location B.
== END 2022-08-23 13:15 | disposition home or self-care (01) ==
PROVIDERS: PCP Internal Medicine; Visit Provider Internal Medicine
DX: I65.23 Occlusion and stenosis of bilateral carotid arteries (principal); I77.9 Disorder of arteries and arterioles, unspecified
CPT/HCPCS: 93880

== ENCOUNTER 2022-10-06 13:10 | Outpatient (CLI) | payer MEDICARE, SELFPAY ==
--- NOTE | ~2022-10-06 | MM_ITS ---
EXAMINATION: MM screening [facility] BI w akash HISTORY: Screening TECHNIQUE: Craniocaudal and mediolateral oblique 3-D tomosynthesis images were obtained and synthetic 2-D images were generated. CAD analysis was submitted and interpreted. COMPARISON: Comparison to multiple prior studies sequentially, with oldest reviewed study dated 08/05. BREAST PARENCHYMAL COMPOSITION: Breast composed of scattered areas of fibroglandular density FINDINGS: There is no evidence of suspicious mass, calcification, or architectural distortion to sugg est malignancy in either breast. There has been no suspicious interval change. IMPRESSION: 1. No mammographic evidence of malignancy. 2. Recommend routine screening mammography in one year. BI-RADS Category 1: Negative Reviewed, dictated and finalized at location A.
== END 2022-10-06 13:11 | disposition home or self-care (01) ==
LOC: ANHIMG 13:11
PROVIDERS: PCP Internal Medicine; Visit Provider Obstetrics & Gynecology
DX: Z12.31 Encounter for screening mammogram for malignant neoplasm of breast (principal)
CPT/HCPCS: 77063; 77067

== ENCOUNTER 2023-02-10 15:49 | Emergency (ER) | payer MEDICARE, SELFPAY ==
[2023-02-10 16:14] VITALS: BP 182/88; PULSE 78; RESP 17; TEMP 36.5; O2SAT 100
--- NOTE | 2023-02-10 16:14 | ECG_ITS ---
Measurements Intervals [place] Rate: 71 P: 53 MD: 142 QRS: 56 QRSD: 74 T: 53 QT: 369 QTc: 401 Interpretive Statements SINUS RHYTHM NORMAL ELECTROCARDIOGRAM NO PREVIOUS ECG AVAILABLE FOR COMPARISON Electronically Signed On 02-10-2023 18:10:36 [employer] by Lencho Banuelos M.D.
--- NOTE | 2023-02-10 17:01 | PC.NURSE ---
patient to desk and stated she needed to leave. advised to come back if symptoms get worse.
== END 2023-02-10 17:37 | disposition left against medical advice (07) ==
LOC: ANHED 17:07
PROVIDERS: Emergency Provider Emergency Medicine; PCP Internal Medicine
DX: R00.2 Palpitations (principal)
CPT/HCPCS: 93005; 99199

== ENCOUNTER 2023-02-11 06:17 | Emergency (ER) | payer MEDICARE, SELFPAY ==
--- NOTE | ~2023-02-11 | XR_ITS ---
EXAMINATION: XR chest 2V DATE: 02/11/2023 07:47 INDICATION: Shortness of breath and headache TECHNIQUE: PA and lateral views of the chest are obtained. COMPARISON: 02/10/2010 FINDINGS: The lungs are free of acute opacities. No pleural effusion or pneumothorax. The cardiomedia stinal silhouette is normal. There is moderate thoracic spondylosis. IMPRESSION: 1. No acute cardiopulmonary abnormality. Reviewed, dictated and finalized at location B. RNET ASSESSOR
[2023-02-11 06:21] VITALS: BP 173/93; PULSE 87; RESP 20; TEMP 37; O2SAT 97
[2023-02-11 06:36] VITALS: BP 157/82; PULSE 77; RESP 23; O2SAT 98
--- NOTE | 2023-02-11 07:02 | ED.DIZZY ---
HPI - Dizziness General Chief Complaint: Dizziness Stated Complaint: headache Time Seen by Provider: 02/11/23 07:01 Source: patient History of Present Illness HPI Narrative: 77-year-old experiencing a dull frontal headache and dizziness complaining of I just don't feel right. she has felt a bit more short of breath, getting occasionally winded . denies orthopnea or paroxysmal nocturnal dyspnea. She checked her blood pressure at [facility] recently and SBP was 189mmHg. she occasionally feels like her heart is fluttering but denies any chest pain. She occasionally has a dry cough. No unilateral symptoms. No history of respiratory or cardiac disease. States her only medications are for hyperlipidemia and she also takes levothyroxine. She took Chloriscedin in few days ago. She had a light brown bowel movement but denies any abdominal pain. She is experiencing a throbbing in her ears that is chronic, usually on the left but the right yesterday. She notes she has a known history of 70% carotid artery stenosis Diagnosed last year.. Not on any anticoagulation, no trauma, no vision changes although she has been having some watery eyes. Lives with her who is not sick. PCP Dr. Robles. Related Data Home Medications Medication Instructions Recorded Confirmed ascorbic acid (vitamin C) 500 mg 500 mg PO DAILY 01/30/19 08/13/22 tablet calcium 600 mg-D3 800 unit-mag11 1 tablet PO DAILY 01/30/19 08/13/22 50 ab-vvgn-ymufig-rayna-s.borat tablet (Caltrate 600-D Plus Minerals) multivitamin (Daily Multi-Vitamin 1 tablet PO DAILY 01/30/19 08/13/22 tablet) lysine 500 mg tablet (L-Lysine) 500 mg PO DAILY 06/14/19 08/13/22 aspirin 81 mg tablet 81 mg PO DAILY 09/12/20 08/13/22 biotin 10,000 mcg chewable tablet mcg PO 08/13/22 08/13/22 (Hair, Skin and Nails (biotin)) Allergies Allergy/AdvReac Type Severity Reaction Status Date / Time No Known Allergies Allergy Unknown Verified 08/13/22 08:47 [facility] Past Medical History Medical History Anemia Carotid artery stenosis 70% occlusion by patient report (diagnosed 2021) Elevated lipids Hypertension Irritable bowel Thyroid disease Surgical History Surgical History H/O abdominoplasty H/O dilation and curettage H/O partial thyroidectomy H/O rotator cuff surgery History of knee replacement Hx of tonsillectomy [place] teeth removed Family History Family History Sibling Patient's sister is in good health Patient's brother is Cancer Father Patient's father is Carcinoma of colon Heart disease Mother Family history of hypercholesterolemia Hypertension Cerebrovascular accident Heart disease Social History Social History Smoking status: Former smoker Second hand tobacco smoke exposure: No Smoking end date: 02/22/76 Alcohol intake: current Substance use: never Lack of Transportation: No Lack of Food: Never True Current Housing: I Have Housing Concerned About Future Housing: No Difficulty Paying Gas/Electric Bills: No Difficulty Paying for Meds: No Currently Unemployed: No Education: High School Diploma/GED Difficulty w/ Childcare or Family Care: No Living arrangements: with family Additional living arrangements comments: Gender identity (if verbalized by the patient): Female Exam Narrative: GENERAL: Well-appearing, well-nourished, and in no acute distress. HEAD: Normocephalic, atraumatic. EYES: Non injected, non icteric ENT: Nares clear, no rhinorrhea or epistaxis. tympanic membranes normal bilaterally. Tacky mucous membranes. NECK: Supple. No meningismus. CHEST: Clear to auscultation Bilaterally. No respiratory distress. speaking in complete sente
--- NOTE | 2023-02-11 07:12 | ECG_ITS ---
Measurements Intervals Shirley Rate: 57 P: 55 MI: 150 QRS: 48 QRSD: 74 T: 34 QT: 401 QTc: 394 Interpretive Statements SINUS BRADYCARDIA WITH OCCASIONAL SUPRAVENTRICULAR PREMATURE COMPLEXES OTHERWISE NORMAL ELECTROCARDIOGRAM COMPARED TO ECG 02/10/2023 16:17:45 HEART RATE IS REDUCED NO OTHER CHANGE Electronically Signed On 02-11-2023 15:10:15 BRIM STRETCHING MACHINE OPERATOR by Lencho Banuelos M.D.
[2023-02-11] MEDS: ACETAMINOPHEN 500 MG TABLET 1000 MG PO (07:36)
[2023-02-11] MEDS: SODIUM CHLORIDE 0.9% IV 1,000 ML 999 ML IV CONT (07:37)
[2023-02-11 07:49] LABS: Basophils Percent Auto 0.3 % (0.2-1.2); Hematocrit 38.4 % (37.0-47.0); Hemoglobin 12.6 g/dL (12.0-15.0); Immature Granulocyte Absolute 0.04 K/mm3 (0.00-0.031); Immature Granulocyte Percent A 1.1 % (0-0.5); Immature Platelet Fraction Pct 7.1 % (0.9-11.2); Lymphocytes Absolute Auto 0.83 K/mm3 (0.9-3.2); Lymphocytes Percent Auto 22.4 % (18.3-44.2); Mean Corpuscular HGB Conc 32.8 g/dl (32-36); Mean Corpuscular Hemoglobin 30.5 pg (26-34); Mean Platelet Volume 11.2 fl (7.4-10.4); Monocytes Absolute Auto 0.7 K/mm3 (0.1-0.6); Monocytes Percent Auto 18.6 % (2.6-8.5); Neutrophils Absolute Auto 2.1 K/mm3 (1.3-6.7); Neutrophils Percent Auto 57.6 % (45.5-73.1); Platelet Count Result 110 k/mm3 (150-375); Red Blood Count 4.13 M/mm3 (4.2-5.4); Red Cell Distribution Width 12.7 % (11.5-14.5); White Blood Count 3.7 K/mm3 (4.5-10.0)
[2023-02-11 07:57] LABS: Alanine Aminotransferase 50 U/L (6-35); Albumin Level 3.9 g/dL (3.5-5.1); Alkaline Phosphatase 60 U/L (38-126); Anion Gap 6 mmol/L (8-16); Aspartate Amino Transferase 36 U/L (14-36); Bilirubin,Total 0.4 mg/dL (0.2-1.3); Blood Urea Nitrogen 17 mg/dL (7-17); Calcium 8.5 mg/dL (8.4-10.2); Carbon Dioxide 29 mmol/L (22-30); Chloride 109 mmol/L (98-107); Estimated CRCL calculation 62 ml/min; Estimated Glomerular Filt Rate > 60; Glucose 93 mg/dL (65-110); Potassium 3.4 mmol/L (3.4-5.0); Sodium 144 mmol/L (137-145)
[2023-02-11 08:06] LABS: NT Pro B Type Natriuretic Pept 260 pg/mL (19.9-100)
[2023-02-11 08:08] LABS: Troponin I < 0.012 ng/mL (0.000-0.034)
[2023-02-11 08:17] VITALS: BP 162/73; PULSE 61; RESP 23; O2SAT 100
[2023-02-11 08:31] LABS: Appearance Urine Clear (Clear); Bacteria Urine 1+ /hpf; Bilirubin Urine Negative (Negative); Blood Urine Trace (Negative); Color Urine Yellow (Yellow); Glucose Urine UA Negative (Negative); Ketones Urine Trace mg/dL (Negative); Leukocyte Esterase Ur Trace LEU/UL (Negative); Need Manual Microscopic Reviewed; Nitrate Urine Negative (Negative); Non Pathogenic Casts 0-2; Protein Urine Negative (Negative); RBC Urine 21-50 /hpf (0-2); Specific Grav Ur 1.029 (1.001-1.035); Squamous Epithelial Cell Urine None seen /hpf (Few)
[2023-02-11 08:36] LABS: Add Urine Microscopic? YES
[2023-02-11 08:47] VITALS: BP 160/73; PULSE 56; RESP 19; O2SAT 95
[2023-02-11 08:51] LABS: Influenza A QL RT-PCR Negative (Negative); Influenza B QL RT-PCR Negative (Negative); SARS-CoV-2 RNA PCR Negative (Negative)
[2023-02-11 09:32] VITALS: BP 160/75; PULSE 61; RESP 21; O2SAT 99
[2023-02-11 10:15] VITALS: BP 167/76; PULSE 72; RESP 16; O2SAT 98
[2023-02-11] MEDS: NITROFURANTOIN MONOHYD MACROCR 100 MG CAP PO (10:15)
== END 2023-02-11 10:15 | disposition home or self-care (01) ==
PROVIDERS: Emergency Provider Student in an Organized Health Care Education/Training Program; PCP Internal Medicine
DX: N39.0 Urinary tract infection, site not specified (principal); D72.819 Decreased white blood cell count, unspecified; D69.6 Thrombocytopenia, unspecified; R74.01 Elevation of levels of liver transaminase levels; R06.02 Shortness of breath; Z20.822 Contact with and (suspected) exposure to COVID-19; I65.29 Occlusion and stenosis of unspecified carotid artery; I10 Essential (primary) hypertension; E78.5 Hyperlipidemia, unspecified; E89.0 Postprocedural hypothyroidism; K58.9 Irritable bowel syndrome, unspecified; Z96.659 Presence of unspecified artificial knee joint; Z87.891 Personal history of nicotine dependence; I49.1 Atrial premature depolarization
CPT/HCPCS: 36415; 71046; 80053; 81001; 83880; 84484; 85025; 85055; 87077; 87086; 87186; 87636; 93005; 96360; 99284; A9270; J7030

== ENCOUNTER 2023-06-07 08:40 | Outpatient (CLI) | payer MEDICARE, SELFPAY ==
[2023-06-07 08:59] LABS: Hemoglobin 13.9 g/dL (12.0-15.0); Mean Corpuscular HGB Conc 33.9 g/dl (32-36); Mean Corpuscular Hemoglobin 30.2 pg (26-34); Mean Corpuscular Volume 88.9 fl (80-100); Mean Platelet Volume 10.1 fl (7.4-10.4); Platelet Count Result 128 k/mm3 (150-375); Red Blood Count 4.61 M/mm3 (4.2-5.4); Red Cell Distribution Width 11.9 % (11.5-14.5); White Blood Count 2.6 K/mm3 (4.5-10.0)
[2023-06-07 09:20] LABS: Band Neutrophils Percent 2 % (0-6); Lymphocytes Absolute Manual 0.72 K/mm3 (1.1-4.5); Metamyelocytes Percent 1 %; Monocytes Absolute Manual 0.72 K/mm3 (0.1-0.90); Monocytes Percent Manual 28 % (3-9); Neutrophils Absolute Manual 1.11 K/mm3 (1.7-7.2); Neutrophils Percent Manual 41 % (46-73); Total Cells Counted 100
[2023-06-07 09:21] LABS: Giant Platelets Present; Platelet Estimate Decreased (Adequate); Schistocytes None Seen
[2023-06-07 10:46] LABS: Alanine Aminotransferase 24 U/L (6-35); Albumin Level 4.4 g/dL (3.5-5.1); Alkaline Phosphatase 61 U/L (38-126); Anion Gap 6 mmol/L (4-12); Aspartate Amino Transferase 32 U/L (14-36); Bilirubin,Total 0.9 mg/dL (0.2-1.3); Blood Urea Nitrogen 11 mg/dL (7-17); Calcium 9.5 mg/dL (8.4-10.2); Carbon Dioxide 29 mmol/L (22-30); Chloride 107 mmol/L (98-107); Estimated Glomerular Filt Rate > 60; Glucose 96 mg/dL (65-110); Potassium 3.9 mmol/L (3.4-5.0); Sodium 142 mmol/L (137-145)
== END 2023-06-07 08:41 | disposition home or self-care (01) ==
PROVIDERS: PCP Internal Medicine; Visit Provider Internal Medicine Hematology & Oncology
DX: D69.59 Other secondary thrombocytopenia (principal)
CPT/HCPCS: 36415; 80053; 82607; 85025

== ENCOUNTER 2023-10-10 12:04 | Outpatient (CLI) | payer BC, SELFPAY ==
--- NOTE | ~2023-10-10 | MM_ITS ---
EXAMINATION: MM screening deirdre BI w akash HISTORY: Screening TECHNIQUE: Craniocaudal and mediolateral oblique 3-D tomosynthesis images were obtained and synthetic 2-D images were generated. CAD analysis was submitted and interpreted. COMPARISON: Comparison to multiple prior studies sequentially, with oldest reviewed study dated 01/23. BREAST PARENCHYMAL COMPOSITION: Not dense: There are scattered areas of fibroglandular density. FINDINGS: There is no evidence of suspicious mass, calcification, or architectural distortion to sugg est malignancy in either breast. There has been no suspicious interval change. IMPRESSION: 1. No mammographic evidence of malignancy. 2. Recommend routine screening mammography in one year. BI-RADS Category 1: Negative Reviewed, dictated and finalized at location B.
--- NOTE | ~2023-10-10 | DEXA_ITS ---
Bone Density Report Name: NGHIA DHALIWAL Age: 78 Sex: Female Ethnicity: White Date of : 1945 Indication: hyperparathyroidism; height loss; Referring Provider: Sheldon Brown Study: Bone densitometry was performed. Exam Date: October 10, 2023 Accession number: [id number] Bone Density: Region BMD T-score Z-score Classification AP Spine(L1, L2, L3) 1.019 0.0 2.6 Normal Femoral Neck (Left) 0.740 -1.0 1.3 Normal Total Hip (Left) 0.920 -0.2 1.9 Normal Femoral Neck (Right) 0.764 -0.8 1.6 Normal Total Hip (Right) 0.951 0.1 2.2 Normal Femoral Neck Mean 0.752 -0.9 1.5 Normal Total Hip Mean 0.936 -0.1 2.0 Normal World Health Organization criteria for BMD impression classify patients as: Normal (T-score at or above -1.0), Osteopenia (T-score between -1.0 and -2.5), or Osteoporosis (T-score at or below -2.5). 10-year Fracture Risk: FRAX not reported because: All T-scores for Spine Total, Hip Total, Femoral Neck at or above -1.0 Clinical Information Provided by Patient: Has used the following medications: Vitamin D, Calcium Has the following medical conditions: Hyperparathyroidism Patient maximum height was 63 Menopause Age: 48 No regular weight bearing exercise Does not regularly consume dairy products Drinks caffeinated beverages Onset of menses at age 10 Number of children 3 Impression: The patient has normal bone mass. Discussion: BONE DENSITY IS ABOVE THE MINIMUM DESIRABLE LEVEL AT ALL SKELETAL SITES TESTED. This patient?s bone mineral density is above the minimum desirable level (T-score -1.0 or better) at all sites measured. The patient should follow a healthful lifestyle (good nutrition with adequate calcium and vitamin D, and appropriate weight-bearing exercise). Follow-Up: Consider repeating this study in 5 years or sooner if there is some new clinical indication. Reported by: Dr. Omar Jordan on 10/10/2023 12:27:00 PM. Reviewed, dictated and finalized at location A. [facility]
== END 2023-10-10 12:05 | disposition home or self-care (01) ==
LOC: CHSIMG 12:06
PROVIDERS: PCP Internal Medicine; Visit Provider Obstetrics & Gynecology
DX: Z12.31 Encounter for screening mammogram for malignant neoplasm of breast (principal); Z78.0 Asymptomatic menopausal state
CPT/HCPCS: 77063; 77067; 77080

== ENCOUNTER 2024-06-26 09:12 | Outpatient (CLI) | payer MEDICARE, SELFPAY ==
[2024-06-26 09:30] LABS: Basophils Percent Auto 0.6 % (0.2-1.2); Eosinophils Percent Auto 0.3 % (0-4.4); Hematocrit 43.1 % (37.0-47.0); Hemoglobin 14.2 g/dL (12.0-15.0); Immature Granulocyte Absolute 0.03 K/mm3 (0.00-0.031); Immature Granulocyte Percent A 0.9 % (0-0.5); Lymphocytes Absolute Auto 0.65 K/mm3 (0.9-3.2); Lymphocytes Percent Auto 18.7 % (18.3-44.2); Mean Corpuscular HGB Conc 32.9 g/dl (32-36); Mean Corpuscular Volume 91.1 fl (80-100); Monocytes Absolute Auto 0.7 K/mm3 (0.1-0.6); Monocytes Percent Auto 20.7 % (2.6-8.5); Neutrophils Percent Auto 58.8 % (45.5-73.1); Platelet Count Result 169 k/mm3 (150-375); Red Blood Count 4.73 M/mm3 (4.2-5.4); White Blood Count 3.5 K/mm3 (4.5-10.0)
--- OUTSIDE RECORDS SUMMARY | 2024-06-26 09:42 | XMS_ITS | Data Portability ---
Author Organization [place] [facility] [place] [facility], Main Office Address [address] [place] [address] Care Team Providers Care Windows Desktop Engineer Name Role Phone NORAH GUTIERREZ Primary Care Provider NORAH GUTIERREZ Referring Provider [phone] Assessment Encounter Date Assessment Date Assessment LastModified by Organization Details LastModified Time 08/25/2022 08/25/2022 HPI: 77-year-old female who came in today for evaluation of her right greater than left lateral hip pain. This pain started several weeks ago. She recalls that she was pulling weeds for entire day bending over and standing back up. After this she started having right greater than left lateral hip pain. Patient complains of start-up pain if she has been sitting in a chair for a length of time and then gets up both lateral hips hurt but when she walks for a while it tends to improve on its own. She can not lay on either side at night due to soreness in the lateral hips. Stairs are uncomfortable. Walking flat level ground is minimally uncomfortable. She is taking no anti-inflammator ies at this point. Physical exam: 77-year-old female alert pleasant. She has flexion of both hips to 120 externally rotates to 40 internally rotates to 20 bilaterally. There is no pain with range of motion. Negative Stinchfield maneuver bilaterally. She has moderate tenderness over both trochanteric bursas right a worse than left. She has mild weakness with abductor testing lateral position of both hips. She walks well without limp or Trendelenburg sag. No swelling in either lower extremity. 2+ dorsalis pedis pulse in both feet. Impression: 77-year-old female has right greater than left lateral hip pain / trochanteric bursitis. 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 As initial management I have recommended a course of formal physical therapy for trochanteric bursitis of both hips. She is going to start taking some Aleve which she has at home once a morning once at night. We will see her back in a month if she is still having quite a bit of soreness and pain and he would be reasonable try cortisone injection in the lateral hips. She is doing very well she can call cancel. 20 minutes was spent treatment patient more half of this in [id number] conversation [email or web address] Not available 08/25/2022 10:15:54 Plan of Treatment Reminders Order Date Submit Date Provider Last Modified By Organization Details Last Modified Time Details Appointments None recorded. Lab None recorded. Referral physical therapist referral 2022 023 [email or web address] Not available 11:51:03 Procedures None recorded. Surgeries None recorded. Imaging XR, hip + pelvis, bilateral 2022 023 [email or web address] [facility] [place], [address], [place], [address], 3 09:18:04 Medication Orders None recorded. Patient TargetsNo targets recorded. Patient InstructionsNo instructions recorded. Reason for Referral Physical Therapist Referral for Pain of bilateral hip joints Referring Physician: Sergio Ceja, Orthopedic Surgery, Encounter Date: 08/25/2022 Results Created Date Observation Date Name Description Value Unit Range Abnormal Flag Note LastModifiedBy Organization Detail LastModifiedTime 01/28/20 22 01/29/2022 XR, hip + pelvi s, unila teral No observ ation record ed. [id number] [id number] [place] [address], [place], [address], 04/21/2022 13:31:01 08/26/19 23 XR, hip + pelvi s, bilat eral No observ ation record ed. [email or web address] [facility] [place] [address], [place], [address], 08/25/2022 10:13:17 Result Notes None recorded. Problems Name Problem SNOMED Code Status Onset Date Resolution Date Notes Provider Name and Address Organization Details Recorded Time Localized, primary osteoarthr itis of the hand 512760290 Active Not Available [facility] 3 13:29:41 Pain of joint of wrist 051105945 Active Not Available [facility] 3 13:29:42 Partial thickness rotator cuff tear 529529344 Active Not Available [facility] 3 13:29:42 Pain of left hip joint 6922834339721 00 Active 2021 Not Available [facility] 3 13:29:42 Enthesopat hy of wrist AND/OR carpus 32902735 Active Not Available [facility] 3 13:29:42 Pain of bilateral hip joints 6629091444331 9100 Active 2022 WILDA Martin, [place] [facility] 3 08:45:04 Problem Notes None recorded. Procedures Surgical History None recorded. Imaging Results Imaging Date Name Status LastModified by Organiz ation Details LastModified Time 01/29/2022 XR, hip + pelvis, unilateral completed [id number] [facility] [place] [address], [place], [address], 04/21/2022 13:31:01 08/25/2022 XR, hip + pelvis, bilateral completed [email or web address] [facility] [place] [address], [place], [address], 08/25/2022 10:13:17 Procedure Notes None recorded. Medical Equipment None Reported. Medications Name Sig Start Date Stop Date Status Note LastModified by Organization Details LastModified Time amoxicillin 500 mg capsule TAKE 1 CAPSULE BY MOUTH THREE TIMES DAILY UNTIL ALL TAKEN 10/17 completed Not Available Not Available Not Available valacyclovi r 1 gram tablet 01/27 completed Not Available Not Available Not Available hydrocodone 5 mg-acetamin ophen 325 mg tablet 01/27 completed Not Available Not Available Not Available Synthroid 150 mcg tablet 01/27 completed Not Available Not Available Not Available meloxicam 15 mg tablet 01/27 completed Not Available Not Available Not Available sulfamethox azole 800 mg-trimetho prim 160 mg tablet 01/27 completed Not Available Not Available Not Available levothyroxi ne 75 mcg tablet TAKE 1 TABLET BY MOUTH ONCE DAILY 10/17 completed Not Available Not Available Not Available levothyroxi ne 100 mcg tablet 01/27 completed Not Available Not Available Not Available methocarbam ol 750 mg tablet TAKE 1 TABLET BY MOUTH EVERY 8 HOURS NEEDED 08/25 completed Not Available Not Available Not Available omeprazole 20 mg capsule,del ayed release 01/27 completed Not Available Not Available Not Available diclofenac sodium 75 mg tablet,lorie yed release 01/27 completed Not Available Not Available Not Available methylpredn isolone 4 mg tablets in a dose pack TAKE BY MOUTH DIRECTED ON INSIDE OF PACKAGE 02/17 completed Not Available Not Available Not Available fluticasone propionate 50 mcg/actuati on nasal spray,suspe nsion USE 1 SPRAY(S) IN EACH NOSTRIL TWICE DAILY 10/17 completed Not Available Not Available Not Available levothyroxi ne 112 mcg tablet 01/27 completed Not Available Not Available Not Available rosuvastati n 5 mg tablet TAKE 1 TABLET BY MOUTH ONCE DAILY 10/17 completed Not Available Not Available Not Available chlorhexidi ne gluconate 0.12 % mouthwash 01/27 completed Not Available Not Available Not Available Zostavax (PF) 19,400 unit/0.65 mL subcutaneou s suspension 01/27 completed Not Available Not Available Not Available Vagifem 10 mcg vaginal tablet 01/27 completed Not Available Not Available Not Available Fluzone High-Dose 2011- (PF) 180 mcg/0.5 mL intramuscul ar syringe 01/27 completed Not Available Not Available Not Available Fluzone High-Dose (PF) 180 mcg/0.5 mL intramuscul ar syringe 01/27 completed Not Available Not Available Not Available Vitals Date Recorded Body mass index (BMI) Body height Body weight Provider Name and Address Organization Details Last Updated DateTime 01/27/2022 27.4 kg/m2 157.48 cm 74212.86 g Not Available [facility] 04/21/2022 13:29:32 Date Recorded Body height Provider Name an d Address Organization Details Last Updated DateTime 02/17/2022 157.48 cm Not Available [facility] 13:29:32 Date Recorded Body height Provider Name an d Address Organization Details Last Updated DateTime 08/25/2022 157.48 cm WILDA Martin [place] [facility] 08/25/2022 08:44:16 Social History Question Answer Notes LastModified by Organizat ion Details LastModified Time Tobacco Smoking Status Never Smoker Not Available [facility] 04/21/2022 13:29:03 What Is Your Level Of Alcohol Consumption? Occasional [id number] Information not available 04/21/2022 Do You Have Smoke And Carbon Monoxide Detectors In Your Home? Yes [id number] Information not available 04/21/2022 Sex: Unknown Functional Status None recorded. Mental Status None recorded. Family History Nothing Reported. Medical History Condition Response ARTHRITIS Y Gynecological HistoryNo gynecological history recorded. Obstetrics History GPAL:G 0 P 0 0 0 0 Past Encounters Encounter ID Performer Location Encounter Start Date Encounter Closed Date Diagnosis/Indication Diagnosis SNOMED-CT Code Diagnosis ICD10 Code Diagnosis Note [id number] Stephen Del Rio MD [facility] [place] [address] [place] [address] 01/27/2022 00:00:00 01/31/2022 14:57:28 [id number] Stephen Del Rio MD [facility] [place] [address] [place] [address] 02/17/2022 00:00:00 02/17/2022 09:53:00 [id number] MD [facility] [place] [address] [place] [address] 08/25/2022 08:31:39 08/25/2022 10:21:04 Pain of bilateral hip joints 9348134190 8886253 M25.551 M25.552 Health Concerns Section Related Observation LastModified by Organization Detai ls LastModified Time None Recorded Concern Status LastModified by Organization Details LastModified Time None Recorded Advance Directives Directive None Recorded Payers Encounter Date Sequence Insurance Name Policy Number Policy Frias Covered Member ID Frias Member ID Guarantor Name 08/25/2022 1 [employer] (MEDICARE REPLACEMENT/ ADVANTAGE - PPO) [id number] Grazyna Tapia [id number] Grazyna Tapia OBGyn Episode No OBEpisode recorded.
--- OUTSIDE RECORDS SUMMARY | 2024-06-26 09:42 | XMS_ITS | Clinical Summary ---
Author Organization [facility] Address [address] [place] [address] Care Team Providers Care Development Assistant Name Role Phone Arnaldo Dolan DO Primary Care Provider [phone] Allergies Active Allergy Reactions Criticality Noted Date Comments Iodine Unknown 07/05/2012 Patient does not like how it feels Patient does not like how it feels Patient stated not allergic just doesn't like it Medications polycarbophil calcium (FiberCon) 625 mg tablet Take 2 Tablets by mouth 2 times daily. Active L. gasseri-B. bifidum-B longum (Munchkin) 1.5 billion cell Capsule Take by mouth daily. Active ascorbic acid (VITAMIN C) 500 mg Tablet, Chewable Active lysine 500 mg tablet Take by mouth daily. Active fluticasone propionate (FLONASE) 50 mcg/spray Quapaw, Suspension nasal inhaler 09/03/2020 Activ e rosuvastatin (CRESTOR) 20 mg tablet TAKE 1 TABLET BY MOUTH ONCE DAILY 08/22/2020 Active levothyroxine (EUTHYROX) 75 mcg tablet Take 75 mcg by mouth daily. 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 Encounters Date Type Department Care Team Description 04/11/2024 External Device Data STL ABSTRACTION Provider, Abstract from Last 3 Months Family History Medical History Relation Name Comments Cancer Father Colon Cancer Father Heart Disease Mother Relation Name Status Comments Daughter Alive Father Mother Sister Alive Son 1 Alive Son 2 Alive Social History Tobacco Use Types Packs/Day Years Used Date Smoking Tobacco: Never Smokeless Tobacco: Never Tobacco Cessation:Counseling Given: Not Answered Alcohol Use Standard Drinks/Week Comments Yes 0 (1 standard drink = 0.6 oz pur e alcohol) Comments No Sex and Gender Information Value Date Recorded Sex Assigned at Not on file Legal Sex Female 2:02 PM CDT Gender Identity Not on file Sexual Orientation Not on file Last Filed Vital Signs Vital Sign Reading Time Taken Comments Blood Pressure 147/93 06/21/2023 10:05 AM CDT Pulse 100 06/21/2023 10:05 AM CDT Temperature 36.7 C (98 F) 06/21/2023 10:01 AM CDT Respiratory Rate 16 06/21/2023 10:01 AM CDT Oxygen Saturation 96% 06/21/2023 10:01 AM CDT Inhaled Oxygen Concentration - - Weight 69.9 kg (154 lb) 06/21/2023 10:01 AM CDT Height 160 cm (5' 3 ) 12/01/2021 9:37 AM CDT Body Mass Index 27.28 12/01/2021 9:37 AM CDT Plan of Treatment Upcoming Encounters Date Type Department Care Team (Late st Contact Info) Description 07/04/2024 9:30 AM CDT Office Visit [facility] - Anurag [address] [facility] [address] [place] [address] Leighton Terrell MD [address] [facility] [facility] [address] [place] [address] Health Maintenance Due Date Last Done Comments OSTEOPOROSIS SCREENING 02/20/2008 PNEUMOCOCCAL VACCINE 50+ YEA RS (2 of 2 - PCV) 12/15/2011 12/14/2010 ZOSTER VACCINE (2 of 3) 02/14/2013 12/20/2012 RSV VACCINE (60+ or ) (1 - 1-dose 75+ series) 2018 INFLUENZA VACCINE (#1) 2023 0, 01/10/2019, 01/10/2019, Additional history exists Preventative Visit- Commercial 02/22/2024 DTAP/TDAP/TD VACCINES (2 - T d or Tdap) 12/25/2025 12/26/2015 COLORECTAL SCREENING Discontinued 10/04/2019 Colorectal Cancer Screening Discontinued FIT-DNA Q 3 years Discontinued FIT/FOBT Q 1 year Discontinued Flex Sig/CT Colonography Q 5 years Discontinued Insurance BCBS MEDICARE [facility] [employer] Care Teams Development Assistant Relationship Specialty Start Date End Date Arnaldo Dolan DO [address] [facility] [address] [place] [address] PCP - General Internal Medicine 08/12/20
--- OUTSIDE RECORDS SUMMARY | 2024-06-26 09:42 | XMS_ITS | Encounter Summary ---
Author Organization [facility] Address [address] [place] [address] Care Team Providers Care Scale Adjuster Name Role Phone Rodney Rubin MD Unavailable [phone] Arnaldo Dolan DO Primary Care Provider [phone] Encounter Details Date Type Department Care Team (Late st Contact Info) Description 09/01/2022 Lab Requisition [facility] - DermPath Lab [address] [facility] [address] [place] [address] Sunny Serrano MD [address] [place] [address] Social History Tobacco Use Types Packs/Day Years Used Date Smoking Tobacco: Former Cigarettes Q uit: 02/22/1976 Smokeless Tobacco: Never Alcohol Use Standard Drinks/Week Comments Yes 0 (1 standard drink = 0.6 oz pur e alcohol) Comments No Sex and Gender Information Value Date Recorded Sex Assigned at Not on file 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[employer] Gender Identity Not on file Sexual Orientation Not on file documented as of this encounter Plan of Treatment Not on file documented as of this encounter Procedures Procedure Name Priority Date/Time Associated Diagnosis Comments DERMATOPATHOLOGY Routine 08/31/2022 12:0 0 AM CDT documented in this encounter Results * DERMATOPATHOLOGY (08/31/2022 12:00 AM CDT) Case Report Dermatopathology Report Case: [id number] Authorizing Provider: Sunny Serrano MD Collected: 08/31/2022 12:00 AM Ordering Location: [facility]erm[facility] Lab Received: 09/01/2022 01:51 PM Pathologist: Pinky Kincaid MD Specimen: Skin, left distal lat thigh 12:42 PM T DERMATOPATHOLOGY LABORATORY Amended Report Correction of Gross Description from Shave to Curettage & Desiccation. Correction of Clinical History from BCC to SBCC. 12:42 PM CDT DERMATOPATHOLOGY LABORATORY Final Diagnosis Specimen A. SKIN, left distal lat thigh: DERMAL SCAR RESIDUAL BASAL CELL CARCINOMA NOT IDENTIFIED (L90.5) 12:42 PM T DERMATOPATHOLOGY LABORATORY Amendment electronically signed by Pinky Kincaid MD on 09/07/2022 at 12:42 PM Clinical History Bx proven SBCC 12:42 PM T DERMATOPATHOLOGY LABORATORY Gross Description Specimen A: Received is one formalin filled container labeled with the patient's name and designated left distal lat thigh. The specimen consists of a curettage and desiccation biopsy measuring [id number] mm. Jar 0. 12:42 PM T DERMATOPATHOLOGY LABORATORY Microscopic Description Specimen A. SKIN, left distal lat thigh: There are fibroblasts and collagen bundles oriented parallel to the skin surface. There are elongated blood vessels, some of which are oriented perpendicular to the skin surface. No basal cell carcinoma is identified. 12:42 PM T DERMATOPATHOLOGY LABORATORY Disclaimer An external and internal positive and negative controls are appropriate for the histochemical, immunohistochemical and immunofluorescence stain(s) in this case (if any), except where stated explicitly. The performance characteristics of the stain(s) cited in this report were developed and its performance characteristic determined by the Dermatopathology Laboratory at [facility], directed by Dr. Brittanie Casanova. These tests need not be, and therefore are not, approved by the [place] Food and Drug Administration. The tests are used for clinical purposes. Billing Codes Specimen Charges Stain Charges 91294 1 12:42 PM CDT DERMATOPATHOLOGY LABORATORY Embedded Images 12:42 PM T DERMATOPATHOLOGY LABORATORY Pathology/Cytolog y TISSUE SPECIMEN FROM SKIN / Unknown 08/31/2022 09/01/2022 1:51 PM CDT Sunny Serrano MD LAB - PATHOLOGY/CYTOLOGY ORD ERABLES Edited Result - Final DERMATOPATHOLOGY LABORATORY [facility] - Department of Dermatology [facility] [address] [place] [address], [address] [phone] documented in this encounter Visit Diagnoses Not on filedocumented in this encounter Care Teams Scale Adjuster Relationship Specialty Start Date End Date Arnaldo Dolan DO [address] [facility] [place] [address] PCP - General Internal Medicine 06/26/12 Rodney Rubin MD Orthopedic Surgery 09/06/11 documented as of this encounter
--- OUTSIDE RECORDS SUMMARY | 2024-06-26 09:42 | XMS_ITS | Encounter Summary ---
Author Organization [facility] Address [address] [place] [address] Care Team Providers Care Svp Name Role Phone Rodney Rubin MD Unavailable [phone] Arnaldo Dolan DO Primary Care Provider [phone] Encounter Details Date Type Department Care Team (Late st Contact Info) Description 07/22/2022 Lab Requisition [facility] - Derm[facility] Lab [address] [facility] [address] [place] [id number] Sunny Serrano MD [address] [place] [address] Social History Tobacco Use Types Packs/Day Years Used Date Smoking Tobacco: Former Cigarettes Q uit: 02/22/1976 Smokeless Tobacco: Never Alcohol Use Standard Drinks/Week Comments Yes 0 (1 standard drink = 0.6 oz pur e alcohol) Comments No Sex and Gender Information Value Date Recorded Sex Assigned at Not on file Legal Sex Female 6:06 AM HORTICULTURAL SPECIALTY GROWER FIELD Gender Identity Not on file Sexual Orientation Not on file documented as of this encounter Plan of Treatment Not on file documented as of this encounter Procedures Procedure Name Priority Date/Time Associated Diagnosis Comments DERMATOPATHOLOGY Routine 07/21/2022 12:0 0 AM CDT documented in this encounter Results * DERMATOPATHOLOGY (07/21/2022 12:00 AM CDT) Case Report Dermatopathology Report Case: [id number] Authorizing Provider: Sunny Serrano MD Collected: 07/21/2022 12:00 AM Ordering Location: [facility] Received: 07/22/2022 01:59 PM Pathologist: Abhi Casanova MD Specimen: Skin, left distal lat thigh 3 11:32 AM T DERMATOPATHOLOGY LABORATORY Final Diagnosis Specimen A. SKIN, left distal lat thigh: BASAL CELL CARCINOMA, SUPERFICIAL MULTIFOCAL (C44.719) 3 11:32 AM CDT DERMATOPATHOLOGY LABORATORY Clinical History R/O SCC, BCC 3 11:32 AM CDT DERMATOPATHOLOGY LABORATORY Gross Description Specimen A: Received is one formalin filled container labeled with the patient's name and designated left distal lat thigh. The specimen consists of a shave biopsy measuring [id number] mm. Jar 0. 3 11:32 AM CDT DERMATOPATHOLOGY LABORATORY Microscopic Description Specimen A. SKIN, left distal lat thigh: Attached to the undersurface of the epidermis, there are small aggregates of basaloid cells with a high nuclear to cytoplasmic ratio and peripheral palisading. 3 11:32 AM T DERMATOPATHOLOGY LABORATORY Disclaimer An external and internal positive and negative controls are appropriate for the histochemical, immunohistochemical and immunofluorescence stain(s) in this case (if any), except where stated explicitly. The performance characteristics of the stain(s) cited in this report were developed and its performance characteristic determined by the Dermatopathology Laboratory at [facility], directed by Dr. Brittanie Casanova. These tests need not be, and therefore are not, approved by the [place] Food and Drug Administration. The tests are used for clinical purposes. Billing Codes Specimen Charges Stain Charges 96569 1 3 11:32 AM CDT DERMATOPATHOLOGY LABORATORY Embedded Images 3 11:32 AM CDT DERMATOPATHOLOGY LABORATORY Pathology/Cytolog y TISSUE SPECIMEN FROM SKIN / Unknown 07/21/2022 07/22/2022 1:59 PM CDT us Sunny Serrano MD LAB - PATHOLOGY/CYTOLOGY ORD ERABLES Final Result DERMATOPATHOLOGY LABORATORY [facility] - Department of Dermatology [address] [phone] documented in this encounter Visit Diagnoses Not on filedocumented in this encounter Care Teams Svp Relationship Specialty Start Date End Date Arnaldo Dolan DO [address] [address] [place] [address] PCP - General Internal Medicine 06/26/12 Rodney Rubin MD Orthopedic Surgery 09/06/11 documented as of this encounter
--- OUTSIDE RECORDS SUMMARY | 2024-06-26 09:42 | XMS_ITS | Encounter Summary ---
Author Organization [facility] Address [address] [place] [address] Care Team Providers Care Classroom Assistant Name Role Phone Rodney Rubin MD Unavailable [phone] Arnaldo Dolan DO Primary Care Provider [phone] Encounter Details Date Type Department Care Team (Late st Contact Info) Description 09/22/2012 Therapy Visit EXTERNAL NON-[facility] DEPT Unknown, Provider Social History Tobacco Use Types Packs/Day Years Used Date Smoking Tobacco: Former Cigarettes Q uit: 02/22/1976 Alcohol Use Standard Drinks/Week Comments Yes 0 (1 standard drink = 0.6 oz pur e alcohol) Comments No Sex and Gender Information Value Date Recorded Sex Assigned at Not on file Legal Sex Female 6:06 AM ENTRY LEVEL ADMINISTRATIVE ASSISTANT Gender Identity Not on file Sexual Orientation Not on file documented as of this encounter Plan of Treatment Not on file documented as of this encounter Visit Diagnoses Not on filedocumented in this encounter Care Teams Classroom Assistant Relationship Specialty Start Date End Date Arnaldo Dolan DO [address] [facility] [address] [place] [address] PCP - General Internal Medicine 06/26/12 Rodney Rubin MD Orthopedic Surgery 09/06/11 documented as of this encounter
--- OUTSIDE RECORDS SUMMARY | 2024-06-26 09:42 | XMS_ITS | Clinical Summary ---
Author Organization [facility] Address [address] [place] [address] Care Team Providers Care Radiotelegraph Operator Servicer Name Role Phone Rodney Rubin MD Unavailable Arnadlo Dolan DO Primary Care Provider [phone] Source Comments [facility],non-owned Affiliates and Associated Physician Practices is amultiple site organization consisting of ambulatory clinics and hospital sitesin [place], [place], [place] and [place]. This disclosure is being madepursuant to the Care Everywhere program and may not contain all information available regarding this patient. Last updated 17.[facility] Allergies Active Allergy Reactions Criticality Noted Date Comments Iodine 07/05/2012 Patient does not like how it feels Medications * Be aware that medications may not be up to date on this document. Alwaysverify current medications with the patient. rosuvastatin (CRESTOR) 5 MG tablet Take 1 (one) tablet by mouth at bedtime Active Calcium Carbonate-Vitamin D (CALTRATE 600+D) 600-400 MG-UNIT TABS Take 1 (one) tablet by mouth 2 times daily Active Calcium Polycarbophil (FIBERCON PO) Take 2 Tabs by mouth 2 times daily. Active Probiotic Product (Ampere PO) Take by mouth once daily. Active Lysine 500 MG TABS Take by mouth once daily. Active vitamin C (ASCORBIC ACID) 500 MG tablet Take 1 (one) tablet by mouth once daily Active fluticasone propionate (FLONASE) 50 MCG/ACT nasal spray 1 Active levothyroxine (Synthroid) 100 MCG tablet Take 1 (one) tablet by mouth once daily 3 Active Cyanocobalamin (VITAMIN B-12 PO) Take 1,000 mg by mouth once daily Active biotin 2.5 MG tablets Take 2 (two) tablets by mouth once daily Active Multiple Vitamin (MULTI VITAMIN PO) Take 1 tablet by mouth once daily Active montelukast (Singulair) 10 MG tablet Take 1 (one) tablet by mouth at bedtime 4 Active Budesonide-Formot chary Fumarate (BREYNA IN) Active AeroChamber Plus (Aerochamber) aerochamber with NO MASK 1 Each 4 Active Active Problems Problem Noted Date Diagnosed Date Leukopenia 08/12/2020 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 I will give her samples of breztri 2 puffs b.i.d. and if she feels improvement send a prescription for it. Pulmonary nodule 06/28/2019 Overview (10/14/2020): Last Assessment & Plan: Repeat CT scan of the chest in 1 year. Shortness of breath 06/28/2019 Overview (10/14/2020): Last Assessment & Plan: Follow-up on cardiac stress test. Chronic cough 06/28/2019 Overview (10/14/2020): Last Assessment & Plan: Use Flonase and Zyrtec as needed. Status post left knee replacement 01/12/2019 Primary osteoarthritis of right knee 01/12/2019 Knee joint replacement by other means 07/28/2012 Osteoarthrosis involving lower leg 09/06/2011 Overview (05/17/2015): 2015 IMO Updt Immunizations Immunization Administration Dates Next Due INFLUENZA VACCINE 03/07/2012 INFLUENZA VACCINE, HIGH-DOSE , QUADR. (FLUZONE HIGH-DOSE QUADRIVALENT; 65Y+), 0.7 ML (HD-IIV4) 01/10/2019,12/12/2017,12/26/2015 INFLUENZA VACCINE, QUADR. (F LUZONE; FLULAVAL; FLUARIX; AFLURIA QUADRIVALENT; 6MO+), 0.5 ML (IIV4) 02/08/2020 PNEUMOCOCCAL PPSV23 12/14/2010 TDAP (7yrs+) 12/26/2015 Social History Tobacco Use Types Packs/Day Years Used Date Smoking Tobacco: Former Cigarettes Q uit: 02/22/1976 Smokeless Tobacco: Never Tobacco Cessation:Counseling Given: Not Answered Alcohol Use Standard Drinks/Week Comments Not Currently 0 (1 standard drink = 0.6 oz pur e alcohol) AUDIT-C Answer Date Recorded Q1: How often do you have a drink containing alcohol? Never 12/12/2023 Q2: How many drinks containi ng alcohol do you have on a typical day when you are drinking? Patient does not drink Q3: How often do you have si x or more drinks on one occasion? 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 Gender Identity Not on file Sexual Orientation Not on file Last Filed Vital Signs Vital Sign Reading Time Taken Comments Blood Pressure 125/57 12/13/2023 10:39 AM CDT Pulse 73 12/13/2023 10:39 AM CDT Temperature 36.8 C (98.2 F) 12/13/2023 9:06 AM CDT Respiratory Rate 18 12/13/2023 7:47 AM CDT Oxygen Saturation 92% 12/13/2023 9:06 AM CDT Inhaled Oxygen Concentration - - Weight 71.5 kg (157 lb 9.6 oz) 12/13/2023 5:04 A M CDT Height 154.9 cm (5' 0.98 ) 12/13/2023 5:04 AM CD T Body Mass Index 29.79 12/13/2023 5:04 AM CDT Plan of Treatment Health Maintenance Due Date Last Done Comments BONE DENSITY TESTING 1945 ZOSTER VACCINE (1 of 2) 1993 PNEUMOCOCCAL VACCINE 50+ (2 of 2 - PCV) 12/15/2011 12/14/2010 Respiratory Syncytial Virus (RSV) Vaccine Pt: or over 60 yrs (1 - 1-dose 75+ series) 2018 COVID-19 VACCINE (1 - 2023- season) 2023 DEPRESSION SCREENING 02/22/2024 MEDICARE AWV CALENDAR YEAR 2024 INFLUENZA VACCINE (Season Ended) 2024 02/08/2020, 01/10/2019, 12/12/2017, Additional history exists DTAP/TDAP/TD VACCINES (2 - Td or Tdap) 12/25/2025 12/26/2015 HEPATITIS B VACCINE Aged Out No longe r eligible based on patient's age to complete this topic HIB VACCINE Aged Out No longer eligi ble based on patient's age to complete this topic HPV VACCINE Aged Out No longer eligi ble based on patient's age to complete this topic MENINGOCOCCAL (Group B) VACCINE SHARED DECISION-MAKING Aged Out No longer eligible based on patient's age to complete this topic MENINGOCOCCAL GROUPS A/C/Y/W VACCINE Aged Out No longer eligible based on patient's age to complete this topic Medical Devices Implanted Type Area Ball Points Inspector Device Identifier Shelf Expiration Date Model / Serial / Lot Jb Bone Kyle Hv Implanted:Qty: 1 on 07/05/2012 by Rodney Rubin MD at [facility] Left: Knee [employer] 01/20/2014 [id number] / / [id number] Patella 31mm Small Implanted:Qty: 1 on 07/05/2012 by Rodney Rubin MD at [facility] Left: Knee 05/21/[id number] / / [id number] Vanguard Femoral 62.5mm Left Implanted:Qty: 1 on 07/05/2012 by Rodney Rubin MD at [facility] Left: Knee 05/21/2022 [id number] / / [id number] Ty Tibial I Beam Fix Bar 67mm Implanted:Qty: 1 on 07/05/2012 by Rodney Rubin MD at [facility] Left: Knee [employer] 03/23/2022 [id number] / / [id number] Vangrd Ant Stblzd Brg 10mm X 67mm Implanted:Qty: 1 on 07/05/2012 by Rodney Rubin MD at [facility] Left: Knee [employer] 05/21/2017 [id number] / / [id number] Brng [id number] Vngrd Vivacit-E Kn Ant Stab Implanted:Qty: 1 on 12/12/2023 by Rodney Rubin MD at [facility] Right: Knee [employer] 09/12/2028 [id number] / / [id number] Cmnt Bone Plc R 40gm Grn Implanted:Qty: 1 on 12/12/2023 by Rodney Rubin MD at [facility] Right: Knee [employer] 12/21/2025 [id number] / / [id number] Tray Tib 67mm Kn Cocr I Beam Implanted:Qty: 1 on 12/12/2023 by Rodney Rubin MD at [facility] Right: Knee [employer] 10/23/2032 [id number] / / [id number] Cmpnt Fem Kn Rt Cr Cmnt Prm Vngrd Intlk 62.5mm Implanted:Qty: 1 on 12/12/2023 by Rodney Rubin MD at [facility] Right: Knee [employer] 10/17/2033 [id number] / / [id number] Cmpnt Ptlr Std 28mm 3 Pg Kn Ser A Implanted:Qty: 1 on 12/12/2023 by Rodney Rubin MD at [facility] Right: Knee [employer] 11/03/2028 [id number] / / [id number] Insurance AMENA ANTHEM Advance Directives * Full Code (Latest Code Status on File) Date Activated Date Inactivated Comments 12/12/2023 9:42 AM 12/13/2023 12:34 PM * FULL RESUSCITATION Date Activated Date Inactivated Comments 07/05/2012 10:53 AM 07/08/2012 1:19 PM Care Teams Radiotelegraph Operator Servicer Relationship Specialty Start Date End Date Arnaldo Dolan DO [address] [facility] [address] [place] [address] PCP - General Internal Medicine 06/26/12 Rodney Rubin MD Orthopedic Surgery 09/06/11
--- OUTSIDE RECORDS SUMMARY | 2024-06-26 09:42 | XMS_ITS | Clinical Summary ---
Author Organization [facility] Address [address] [facility] [place] [address] Phone Care Team Providers Care Removable Prosthodontist Name Role Phone Arnaldo Dolan DO Primary Care Provider Xiomara Willi Najma LOPEZ Unavailable [phone] Social History Tobacco Use Types Packs/Day Years Used Date Smoking Tobacco: Never Assessed Comments Unknown Sex and Gender Information Value Date Recorded Sex Assigned at Not on file Legal Sex Female 12:19 AM CDT Gender Identity Not on file Sexual Orientation Not on file Plan of Treatment Health Maintenance Due Date Last Done Comments DEXA Bone Density 1945 Hepatitis C Virus (HCV) Screening 1945 TdaP Immunization 1945 Cologuard 1993 Immunochemical Fecal Occult Blood 1993 Pneumococcal Immunization (50+ years) (1 of 1 - PCV) 1993 Zoster Immunization (2 of 3) 02/14/2013 12/20/2012 Respiratory Syncytial Virus (RSV) Immunization (Adult) (1 - 1-dose 75+ series) 2018 Influenza Immunization (#1) 10/23/202301/21, 01/10/2019, 12/12/2017, Additional history exists SARS-COV-2 Immunization ( - 2023- season) 2023 11/18/2020, 03/28/2020, 03/07/2020 Colonoscopy High Risk 10/03/2024 10/04/2019, 015 Colorectal Cancer Screening 10/03/2024 Colonoscopy 10/03/2029 10/04/2019, 01/02/2015 Hepatitis B Immunization Aged Out No longer eligible based on patient's age to complete this topic Meningococcal Immunization (ACWY) Aged Out No longer eligible based on patient's age to complete this topic Rotavirus Immunization Aged Out No lo nger eligible based on patient's age to complete this topic Procedures Procedure Name Priority Date/Time Associated Diagnosis Comments COLONOSCOPY Routine 10/04/2019 from Last 3 Months or Most Recently Relevant to Health Maintenance Results * COLONOSCOPY (10/04/2019) Willi Solano DO PROCEDURE/MINOR SURGICAL ORDERA BLES Final Result from Last 3 Months or Most Recently Relevant to Health Maintenance Insurance [employer] [place] [facility] Care Teams Removable Prosthodontist Relationship Specialty Start Date End Date Arnaldo Dolan DO [address] [place] [address] PCP - General Internal Medicine 01/14/15 Willi Solano DO [address] [place] [address] Gastroenterology 01/14/15
--- OUTSIDE RECORDS SUMMARY | 2024-06-26 09:42 | XMS_ITS | Referral Summary ---
Author Organization [facility] [address] Address [address] [place] [address] Care Team Providers Care Angular Js Developer Name Role Phone Arnaldo Dolan MD Primary Care Provider [phone] Allergies Active Allergy Reactions Criticality Noted Date Comments Iodine Other (See comments) Low 07/05/2012 Patient does not like how it feels Patient stated not allergic just doesn't like it Medications calcium carbonate-vit D3-min 600 mg calcium- 400 unit tablet Take 1 tablet by mouth 2 (two) times a day Active lysine 1,000 mg tablet Take by mouth Active polycarbophil (FIBERCON) 625 mg tablet Take 1 tablet (625 mg total) by mouth daily Active rosuvastatin (CRESTOR) 20 mg tablet Take 1 tablet (20 mg total) by mouth daily Active levothyroxine (SYNTHROID) 112 mcg tablet Take 1 tablet (112 mcg total) by mouth naval inspector before breakfast Active albuterol HFA (PROVENTIL HFA,VENTOLIN HFA,PROAIR HFA) 90 mcg/actuation inhaler Inhale 2 puffs every 6 (six) hours as needed for wheezing or shortness of breath OK TO SUBSTITUTE IF ALTERNATIVE CHEAPER 1 each 1 4 Active budesonide-form oteroL (SYMBICORT) 160-4.5 mcg/actuation inhaler Inhale 2 puffs 2 (two) times a day Rinse mouth with water after use. Do not swallow. 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 I will give her samples of breztri 2 puffs b.i.d. and if she feels improvement send a prescription for it. Assessment & Plan (08/22/2019 2:08 PM CDT): PFT's show significant decline in mid expiratory flow rate with improvement with bronchodilators. FEV1 to FVC ratio is exactly 70. I will give her a trial of Breo Ellipta and p.r.n. albuterol inhaler and follow her symptoms. Shortness of breath 06/28/2019 Assessment & Plan (08/06/2020 3:07 PM CDT): Follow-up on cardiac stress test. Assessment & Plan (02/06/2020 2:42 PM DRUG ENFORCEMENT AGENT): Obtain BNP. Patient was advised to increase her activity level. Assessment & Plan (08/22/2019 2:08 PM CDT): 2D echocardiogram does not show evidence of systolic or diastolic dysfunction. Will give her bronchodilators and follow symptoms. Assessment & Plan (06/28/2019 8:54 AM CDT): Patient has chronic dyspnea mostly with exertion. I will obtain full set of PFTs and 2D echocardiogram for further evaluation. Pulmonary nodule 06/28/2019 Assessment & Plan (08/06/2020 3:07 PM CDT): Repeat CT scan of the chest in 1 year. Assessment & Plan (02/06/2020 2:43 PM DRUG ENFORCEMENT AGENT): Repeat CT scan of the chest with her next visit. Assessment & Plan (08/22/2019 2:08 PM CDT): CT scan of the chest shows mild pulmonary emphysema and 0.3 cm pulmonary nodule. Will repeat a CT scan of the chest in 1 year. Assessment & Plan (06/28/2019 8:55 AM CDT): Will obtain CT scan of the chest for further evaluation of lung parenchyma. Chronic cough 06/28/2019 Assessment & Plan (08/06/2020 3:07 PM CDT): Use Flonase and Zyrtec as needed. Assessment & Plan (02/06/2020 2:43 PM DRUG ENFORCEMENT AGENT): Continue with Flonase and Zyrtec. Assessment & Plan (08/22/2019 2:09 PM CDT): Continue with Flonase/Zyrtec and bronchodilators. Assessment & Plan (06/28/2019 8:55 AM CDT): Cough with postnasal drip is likely due to chronic rhinosinusitis. Patient was advised to use [id number] Zyrtec/Flonase. Osteoarthrosis involving lower leg 09/06/2011 Overview (08/11/2021): 2015 IMO Updt Immunizations Immunization Administration Dates Next Due Influenza, Quadrivalent, Hig h Dose, Preservative Free, Intrr 01/10/2019,12/12/2017,12/26/2015 Influenza, Trivalent, High D ose, Split, Preservative Free, Intramuscular 01/10/2019,12/12/2017,12/26/2015,12/12 Influenza, Trivalent, IM (MDV) 12/20/2012,2012 Influenza, Unspecified 03/07/2012 Pneumococcal Polysaccharide PPV23 12/14/2010 Tdap 12/26/2015 ZOSTER LIVE 12/20/2012 Social History Tobacco Use Types Packs/Day Years Used Date Smoking Tobacco: Former Cigarettes 1 15 1 962 - 1976 Smokeless Tobacco: Never Comments Unknown Sex and Gender Information Value Date Recorded Sex Assigned at Not on file Legal Sex Female 1:45 AM DRUG ENFORCEMENT AGENT Gender Identity Not on file Sexual Orientation Not on file Last Filed Vital Signs Vital Sign Reading Time Taken Comments Blood Pressure 124/64 01/18/2024 11:03 AM DRUG ENFORCEMENT AGENT Pulse 76 01/18/2024 11:03 AM DRUG ENFORCEMENT AGENT Temperature 36.7 C (98.1 F) 01/18/2024 11:03 AM DRUG ENFORCEMENT AGENT Respiratory Rate 18 01/18/2024 11:03 AM DRUG ENFORCEMENT AGENT Oxygen Saturation 97% 01/18/2024 11:03 AM DRUG ENFORCEMENT AGENT Inhaled Oxygen Concentration - - Weight 69.9 kg (154 lb) 01/18/2024 11:03 AM DRUG ENFORCEMENT AGENT Height 156.2 cm (5' 1.5 ) 01/18/2024 11:03 AM CS T Body Mass Index 28.63 01/18/2024 11:03 AM DRUG ENFORCEMENT AGENT Plan of Treatment Not on file Insurance [employer]M MEDICARE HMO PPO ANTHEM MEDICARE HMO PPO Care Teams Angular Js Developer Relationship Specialty Start Date End Date Arnaldo Dolan MD [address] [facility] [address] [place] [address] PCP - General Internal Medicine 12/08/17
--- OUTSIDE RECORDS SUMMARY | 2024-06-26 09:42 | XMS_ITS | Encounter Summary ---
Author Organization [facility] Address [address] [place] [address] Care Team Providers Care Master Rigger Name Role Phone Rodney Rubin MD Unavailable [phone] Arnaldo Dolan DO Primary Care Provider [phone] Encounter Details Date Type Department Care Team (Late st Contact Info) Description 09/16/2020 Lab Requisition [facility] Care Pathology Lab [address] [place] [address] Zach Avalos MD [address] [place], [place] [id number] Illness, unspecified Social History Tobacco Use Types Packs/Day Years Used Date Smoking Tobacco: Former Cigarettes Q uit: 02/22/1976 Smokeless Tobacco: Never Alcohol Use Standard Drinks/Week Comments Yes 0 (1 standard drink = 0.6 oz pur e alcohol) Comments No Sex and Gender Information Value Date Recorded Sex Assigned at Not on file 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 No / Unsure 09/12/2020 1:00 PM CDT documented as of this encounter Plan of Treatment Not on file documented as of this encounter Procedures Procedure Name Priority Date/Time Associated Diagnosis Comments BONE MARROW BIOPSY (STL) Routine 09/12/2020 8:50 AM CDT Illness, unspecified documented in this encounter Results * BONE MARROW BIOPSY (STL) (09/12/2020 8:50 AM CDT) Case Report Bone Marrow Patholog y Report Case: [id number] Authorizing Provider: Zach Avalos MD Collected: 09/12/2020 08:50 AM Ordering Location: [facility] Pathology Lab Received: 09/16/2020 07:02 AM Pathologist: Merle Douglass MD Specimens: A) - Bone Marrow Clot B) - Bone Marrow Core 09/16/2020 10:25 AM CDT [facility] PATHOLOGY LAB Final Diagnosis Bone marrow, aspirate, clot section, and core biopsy: - Normocellular marrow with maturing trilineage hematopoiesis. - No evidence of lymphoma or high-grade myeloid neoplasm. - See description. 09/16/2020 10:25 AM T [facility] PATHOLOGY LAB Comment Overall, the bone marrow specimen is normocellular for age with maturing trilineage hematopoiesis and no evidence of lymphoma, a high-grade myeloid neoplasm, or significant dyspoiesis. Correlation with clinical findings and relevant cytogenetic/molecular testing is required. 09/16/2020 10:25 AM T [facility] PATHOLOGY LAB Bone Marrow Aspirate The aspirate smears are aspiculate and paucicellular. Given the low cellularity, a differential count is not performed. Scanning shows rare maturing myeloid and erythroid lineage cells with no significant dyspoiesis. Megakaryocytes are too few to evaluate. Sideroblastic iron (by special stain): decreased, but paucicellular smear with no spicules. Control is appropriately reactive. 09/16/2020 10:25 AM CDT [facility] PATHOLOGY LAB Bone Marrow Core Biopsy and Clot Section Description Specimen quality: The decalcified bone marrow core biopsy is adequate for evaluation. Cellularity: Normocellular, 30%. Trilineage Hematopoiesis: present. Myeloid to Erythroid ratio: normal. Myeloid maturation and localization: normal. Erythroid maturation and localization: normal. Megakaryocyte number: normal. Megakaryocyte distribution: normal. Lymphoid aggregates: absent. Clot section marrow particles: present. Clot section morphology: similar to core biopsy. Clot section iron (by special stain): Focal. Control is appropriately reactive. 09/16/2020 10:25 AM CDT [facility] PATH[facility] Flow Cytometry Summary Concurrent flow cytometry ([id number]) shows no clonal B-cell or increased blast population. 09/16/2020 10:[address] [facility] Clinical History 75 year old woman with leukopenia and thrombocytopenia. 09/16/2020 10:[address] [facility] Materials Received Received are 16 slides and 3 blocks (A1, A2, B1) labeled [id number] along with a copy of the outside pathology report. [place] [address]. All original materials are returned to the referring institution, along with a copy of our final report. 09/16/2020 10:[address] [facility] Disclaimer The performance characteristics of all immunohistochemical and indirect immunofluorescence stains (if any) cited in this report were determined by the Histopathology Laboratory of [facility]. Some of these tests were developed by our own laboratory and have not been cleared or approved by the US Food and Drug Administration. The FDA does not require this test to go through premarket FDA review. These tests are used for clinical purposes. They should not be regarded as investigational or for research. This laboratory is certified under the Clinical Laboratory Improvement Amendments (CLIA) as qualified to perform high complexity clinical laboratory testing. This case has been personally reviewed and interpreted by the attending (teaching) pathologist. 09/16/2020 10:[address] [facility] Embedded Images 09/16/2020 10:25 AM T [facility] PATHOLOGY LAB Pathology/Cytology BONE MARROW SPECIMEN / Unknown 09/12/2020 8:50 AM CDT 09/16/2020 7:02 AM CDT Miscellaneous samples (specimen) BONE MARROW SPECIMEN / Unknown 09/12/2020 8:50 AM CDT 09/16/2020 7:02 AM CDT Zach Avalos MD LAB - PATHOLOGY/CYTOLOGY ORDER RADHA Final Result [facility] PATHOLOGY LAB [address] [place] [address], [facility] [phone] documented in this encounter Visit Diagnoses Diagnosis Illness, unspecified documented in this encounter Care Teams Master Rigger Relationship Specialty Start Date End Date Arnaldo Dolan DO [address] [facility] [facility] [place] [address] PCP - General Internal Medicine 06/26/12 Rodney Rubin MD Orthopedic Surgery 09/06/11 documented as of this encounter
--- OUTSIDE RECORDS SUMMARY | 2024-06-26 09:42 | XMS_ITS | Continuity of Care Document ---
Author Organization [facility] Address [address] [place] [address] [place] [address] Phone Care Team Providers Care Flight Deck Officer Name Role Phone Jim Gonzalez MD Unavailable Unavailable Procedures Procedure Date Office/outpatient Visit, [facility] Advance Directives Directive Yes / No Effective Date File Name No Information Encounters Encounter Description Practice Location Reason(s) For Visit Diagnoses Date Provider Providers Copied on Encounter Office/outpat ient Visit, [facility], [address] [place] [address] [address], [place], [place], [id number], [place] tel:[phone] [address] Gabe Bernal No Information 7 Lisa Fernandez. [address] [facility] [address] [place], [place], [id number], [place]. tel:[phone] Family History Family Member Type Diagnosis Age At Onset No Information Payers Payer name Insurance type Covered democrat ID Authoriza tion(s) BCBS [place] Out Of [place] CI [id number] Social History Type Description Quantity Date Captured Comments Sex Female Smoking Status No Information Chief Complaint And Reason For Visit No Information Reason For Referral Reason For Referral No Information History Of Present Illness Encounter Date Complaint History Of Prese nt Illness No Information Functional Status Date Functional Assessmen t No Information Instructions Date Instruction Additional Infor mation No Information Assessments Type Assessment Date No Information Patient Care Teams Name Effective Dates (start - stop) Status Members No Information
--- OUTSIDE RECORDS SUMMARY | 2024-06-26 09:42 | XMS_ITS | Clinical Summary ---
Author Organization [facility] Address [address] [place] [address] Care Team Providers Care Bricklayer Supervisor Name Role Phone Josiah Tran DO Primary Care Provider + Social History Tobacco Use Types Packs/Day Years Used Date Smoking Tobacco: Never Assessed Comments Unknown Sex and Gender Information Value Date Recorded Sex Assigned at Not on file Legal Sex Female 10:45 AM [employer]OR [employer] Gender Identity Not on file Sexual Orientation Not on file Plan of Treatment Health Maintenance Due Date Last Done Comments DTaP, Tdap and Td Vaccines ( 1 - Tdap) 1962 Pneumococcal Vaccine: 50+ Ye ars (1 of 1 - PCV) 1993 Zoster Vaccines (1 of 2) 1993 Dexa Scan (General) 02/20/2008 RSV Immunization or 60+ Years (1 - 1-dose 75+ series) 2018 COVID-19 Vaccine ( - 2023-2 5 season) 2023 Meningococcal B Vaccine Aged Out No l onger eligible based on patient's age to complete this topic Meningococcal Vaccine Aged Out No rafael edith eligible based on patient's age to complete this topic RSV Immunizations Under 20 Months Aged Out No longer eligible based on patient's age to complete this topic Care Teams Bricklayer Supervisor Relationship Specialty Start Date End Date Josiah Tran DO [address] [place] [address] PCP - General FAMILY PRACTICE 02/08/18
--- OUTSIDE RECORDS SUMMARY | 2024-06-26 09:42 | XMS_ITS | Encounter Summary ---
Author Organization [facility] Address [address] [place] [address] Care Team Providers Care Puppet Developer Name Role Phone Rodney Rubin MD Unavailable [phone] Arnaldo Dolan DO Primary Care Provider [phone] Encounter Details Date Type Department Care Team (Late st Contact Info) Description 09/12/2020 Lab Requisition 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 Gender Identity Not on file Sexual Orientation [...] Procedure Name Priority Date/Time Associated Diagnosis Comments FLOW CYTOMETRY BONE MARROW Routine 09/12/2020 8:50 AM CDT Anemia, unspecified documented in this encounter Results * FLOW CYTOMETRY BONE MARROW (09/12/2020 8:50 AM CDT) Case Report Flow Cytometry Case: [id number] Authorizing Provider: Armandoaidapatricia Carrie Glass Collected: 09/12/2020 08:50 AM Ordering Location: [facility] Pathology Lab Received: 09/12/2020 01:19 PM Pathologist: Payam Schaffer MD Specimen: Bone Marrow, Right 09/12/2020 4:02 PM [facility] PATHOLOGY LAB Final Diagnosis Bone marrow, flow cytometry: No clonal B-cell or increased blast population detected 09/12/2020 4:02 PM [facility] PATH[facility] Flow Cytometry Interpretation The bone marrow specimen has a viability of 96%. The lymphocyte, dim CD45, monocyte, and granulocyte thomas are normal in relative proportion. Within the lymphocyte gate, there is no monotypic B-cell population identified (kappa: lambda ratio = 1.2:1). There is no expanded T-cell population seen. By CD34, <2% of all events analyzed are blasts. A bone marrow aspirate smear prepared from the flow cytometry specimen is reviewed for quality process lead purposes. 09/12/2020 4:02 PM [facility] PATH[facility] Flow Cytometry Results Differential Result Comment Flow Cell Count /uL 21,600 Total Viability % 96.0 Lymphocytes % 13 Dim CD45 Region % 4 Monocytes % 16 Granulocytes % 67 09/12/2020 4:02 PM [facility] Reason for test Anemia, unspecified 285.9 09/12/2020 4:02 PM [facility] PATH[facility] Client Specimen ID # [id number] 09/12/2020 4:02 PM [facility] Number of markers 10 were performed. A-2 Flow CD10 A-3 Flow CD13 A-5 Flow CD20 A-1 Flow CD5 A-4 Flow CD19 A-6 Flow CD33 A-7 Flow CD34 A-8 Flow CD45 A-9 Montesano+CD19+ A-10 Lambda+CD19+ 09/12/2020 4:02 PM [facility] PATH[facility] Disclaimer Test performed at [facility], [address] [place] [address], [address]. *The established laboratory minimum viability is 70%. Values below the minimum may result in the failure to find an abnormal population of cells. This test was developed and its performance characteristics determined by the Flow Cytometry Laboratory. It has not been cleared by the [place] Food and Drug Administration (FDA). The FDA has determined that such clearance or approval is not necessary. This test is used for clinical purposes. It should not be regarded as investigational or for research. This laboratory is regulated under the Clinical Laboratory Improvement Amendments of 1998 (CLIA) as a qualified to perform high complexity clinical testing. 09/12/2020 4:02 PM CDT [facility] PATHOLOGY LAB Embedded Images 4:02 PM CDT [facility] PATHOLOGY LAB Pathology/Cytolo gy BONE MARROW SPECIMEN / Unknown 09/12/2020 8:50 AM CDT 09/12/2020 1:19 PM CDT Carrievolodymyr Nicolepatricia DO LAB - PATHOLOGY/CYTOLOGY OR DERABLES Final Result Performing Organization Address City/State/[facility] de Phone Number [facility] PATHOLOGY LAB [address] [phone] documented in this encounter Visit Diagnoses Diagnosis Anemia, unspecified documented in this encounter Care Teams Puppet Developer Relationship Specialty Start Date End Date Arnaldo Dolan DO [address] [facility] [address] [facility] [address] [place] [address] PCP - General Internal Medicine 06/26/12 Rodney Rubin MD Orthopedic Surgery 09/06/11 documented as of this encounter
--- OUTSIDE RECORDS SUMMARY | 2024-06-26 09:42 | XMS_ITS | Encounter Summary ---
Author Organization [facility] Address [address] [place] [address] Care Team Providers Care Inventory Planner Name Role Phone Rodney Rubin MD Unavailable [phone] Arnaldo Dolan DO Primary Care Provider [phone] Encounter Details Date Type Department Care Team (Late st Contact Info) Description 11/10/2012 Therapy Visit [facility]TERNAL [facility] Unknown, Provider Social History Tobacco Use Types Packs/Day Years Used Date Smoking Tobacco: Former Cigarettes Q uit: 02/22/1976 Alcohol Use Standard Drinks/Week Comments Yes 0 (1 standard drink = 0.6 oz pur e alcohol) Comments No Sex and Gender Information Value Date Recorded Sex Assigned at Not on file 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
--- OUTSIDE RECORDS SUMMARY | 2024-06-26 09:42 | XMS_ITS ---
Author Name Auto Generated, Auto Generated Organization [facility] Address [address] [place] [address] Phone [phone] Care Team Providers Care Microbiology Lab Analyst Name Role Phone Arnaldo Dolan Unavailable Rodney Rubin Unavailable Functional Status No Results Mental Status No Results Allergies and Intolerances Name Onset Date Reaction Severity iodine (Allergy) TueDec 12 13:05:00 EDT 2023 Encounters Program Name Primary Diagnosis Admission Date/Time Dis charge Date/Time Home Care TueDec 13 20:00 :00 EDT 2023Dec 29 18:59:59 EST 2023 Medications Medication Directions Start Date End Date acetaminophen 500 mg tablet 2 TAB TABLET Oral Every 8 Hours 1000 MG TID X 10 DAYS THEN PRN MILD PAIN TueDec 14 01:00:00 EDT 2023Dec 29 01:00:00 EST 2023 Aspir-Low 81 mg tablet,delayed release 1 TAB TABLET, DELAYED RELEASE (ENTERIC COATED) Oral 2 Times Daily for 42 Days TueDec 14 01:00:00 EDT 2023Dec 29 01:00:00 EST 2023 CeleBREX 200 mg capsule 1 CAP CAPSULE Or al 2 Times Daily for 42 Days TueDec 14 01:00:00 EDT 2023Dec 29:00:00 EST 2023 omeprazole 20 mg capsule,delayed release 1 CAP CAPSULE,DELAYED RELEASE (ENTERIC COATED) Oral Every 1 Day for 42 Days TueDec 14 01:00:00 EDT 2023Dec 29 01:00:00 EST 2023 oxyCODONE 5 mg tablet 1-2 TAB TABLET Ora l PRN Every 4 Hours PRN MODERATE TO SEVERE PAIN TueDec 14 01:00:00 EDT 2023Dec 29 01:00:00 EST 2023 Miralax 17 gram oral powder packet 17 GRAM POWDER IN PACKET (EA) Oral Every 1 Day PRN CONSTIPATION Gabriela Dec 14 01:00:00 EDT 2023Dec 29:00:00 EST 2023 ascorbic acid (vitamin C) 500 mg tablet 1 TAB TABLET Oral Every 1 Day TueDec 14:00:00 EDT 2023Dec 29:00:00 EST 2023 biotin 5 mg tablet 0.5 TAB TABLET Oral Every 1 Day TueDec 14:00:00 EDT 2023Dec 29:00:00 EST 2023 Breyna 80 mcg-4.5 mcg/actuation HFA aerosol inhaler 2 PUFFS HFA AEROSOL WITH ADAPTER (GRAM) Inhalation 2 Times Daily TueDec 14:00:00 EDT 2023Dec 29:00:00 EST 2023 Caltrate plus D 600 mg (carbonate)-20 mcg (800 unit) chewable tablet 1 TAB TABLET,CHEWABLE Oral Every 1 Day TueDec 14:00:00 EDT 2023Dec 29:00:00 EST 2023 Crestor 5 mg tablet 1 TAB TABLET Oral Ho ur Of Sleep TueDec 14:00:00 EDT 2023Dec 29:00:00 EST 2023 FiberCon 625 mg tablet 1 TAB TABLET Oral Every 1 Day TueDec 14:00:00 EDT 2023Dec 29:00:00 EST 2023 levothyroxine 100 mcg tablet 1 TAB TABLET Oral Every 1 Day TueDec 14:00:00 EDT 2023Dec 29:00:00 EST 2023 lysine 500 mg tablet 1 TAB TABLET Oral E very 1 Day TueDec 14 01:00:00 EDT 2023Dec 29:00:00 EST 2023 montelukast 10 mg tablet 1 TAB TABLET Or al Hour Of Sleep TueDec 14 01:00:00 EDT 2023Dec 29 01:00:00 EST 2023 multivitamin tablet 1 TAB TABLET Oral Ev bradly 1 Day TueDec 14 01:00:00 EDT 2023Dec 29 01:00:00 EST 2023 [employer] 3 billion cell capsule 1 CAP CAPSULE Oral Every 1 Day TueDec 14 01:00:00 EDT 2023Dec 29:00:00 EST 2023 cyanocobalamin (vitamin B-12) 1,000 mcg capsule 1 CAP CAPSULE Oral Every 1 Day TueDec 14 01:00:00 EDT 2023Dec 29 01:00:00 EST 2023 Problems Active Concerns * Presence of left artificial knee joint* Code: * Start Date: TueNov 21 00:00:00 EDT 2023 * End Date: * Text: * Acquired absence of other organs* Code: * Start Date: TueNov 21 00:00:00 EDT 2023 * End Date: * Text: * Personal history of nicotine dependence* Code: * Start Date: TueNov 21 00:00:00 EDT 2023 * End Date: * Text: * jail (current) use of aspirin* Code: * Start Date: TueDec 14 00:00:00 EDT 2023 * End Date: * Text: * Encounter for removal of sutures* Code: * Start Date: TueDec 14 00:00:00 EDT 2023 * End Date: * Text: * History of falling* Code: * Start Date: TueDec 14 00:00:00 EDT 2023 * End Date: * Text: * Hypothyroidism, unspecified* Code: * Start Date: TueDec 14 00:00:00 EDT 2023 * End Date: * Text: * Pure hypercholesterolemia, unspecified* Code: * Start Date: TueDec 14 00:00:00 EDT 2023 * End Date: * Text: * Unspecified asthma, uncomplicated* Code: * Start Date: TueDec 14 00:00:00 EDT 2023 * End Date: * Text: * Presence of right artificial knee joint* Code: * Start Date: TueDec 14 00:00:00 EDT 2023 * End Date: * Text: * Aftercare following joint replacement surgery* Code: * Start Date: TueDec 14 00:00:00 EDT 2023 * End Date: * Text: Reason for Referral
--- OUTSIDE RECORDS SUMMARY | 2024-06-26 09:42 | XMS_ITS | Clinical Summary ---
Author Organization [facility] [address] Address [address] [place] [address] Care Team Providers Care Communications Tower Technician Name Role Phone Arnaldo Dolan MD Primary Care Provider [phone] Allergies Active Allergy Reactions Criticality Noted Date [...] 1 tablet (112 mcg total) by mouth inventory control specialist before breakfast Active albuterol HFA (PROVENTIL HFA,VENTOLIN [...] test. Assessment & Plan (02/06/2020 2:42 PM FOOD PRODUCTION WORKER): Obtain BNP. Patient was advised to increase [...] year. Assessment & Plan (02/06/2020 2:43 PM FOOD PRODUCTION WORKER): Repeat CT scan of the chest with [...] needed. Assessment & Plan (02/06/2020 2:43 PM FOOD PRODUCTION WORKER): Continue with Flonase and Zyrtec. Assessment & Plan (08/22/2019 2:09 PM CDT): Continue with Flonase/Zyrtec and bronchodilators. Assessment & Plan (06/28/2019 8:55 AM CDT): Cough with postnasal drip is likely due to chronic rhinosinusitis. Patient was advised to use [id number] Zyrtec/Flonase. Osteoarthrosis involving lower leg 09/06/2011 Overview (08/11/2021): 2015 IMO Updt Immunizations Immunization Administration Dates Next Due Influenza, Quadrivalent, Hig h Dose, Preservative Free, Intrr 01/10/2019,12/12/2017,12/26/2015 Influenza, Trivalent, High D ose, Split, Preservative Free, Intramuscular 01/10/2019,12/12/2017,12/26/2015,12/12 Influenza, Trivalent, IM (MDV) 12/20/2012,2012 Influenza, Unspecified 03/07/2012 Pneumococcal Polysaccharide PPV23 12/14/2010 Tdap 12/26/2015 ZOSTER LIVE 12/20/2012 Surgical History Surgery Date Site/Laterality Comments ROTATOR CUFF REPAIR SHOULDER SURGERY Bilateral THYROIDECTOMY, PARTIAL ABDOMINOPLASTY REPLACEMENT TOTAL KNEE Left Medical History Medical History Date Comments Arthritis Thyroid disease High cholesterol Hypertension Family History Medical History Relation Name Comments Cancer Father Heart failure Mother Relation Name Status Comments Father Mother Social History Tobacco Use Types Packs/Day Years Used Date Smoking Tobacco: Former Cigarettes 1 15 1976 Smokeless Tobacco: Never Comments Unknown Sex and Gender Information Value Date Recorded Sex Assigned at Not on file Legal Sex Female 1:45 AM FOOD PRODUCTION WORKER Gender Identity Not on file Sexual Orientation Not on file Obstetrics History Last Filed Vital Signs Vital Sign Reading Time Taken Comments Blood Pressure 124/64 01/18/2024 11:03 AM FOOD PRODUCTION WORKER Pulse 76 01/18/2024 11:03 AM FOOD PRODUCTION WORKER Temperature 36.7 C (98.1 F) 01/18/2024 11:03 AM FOOD PRODUCTION WORKER Respiratory Rate 18 01/18/2024 11:03 AM FOOD PRODUCTION WORKER Oxygen Saturation 97% 01/18/2024 11:03 AM FOOD PRODUCTION WORKER Inhaled Oxygen Concentration - - Weight 69.9 kg (154 lb) 01/18/2024 11:03 AM FOOD PRODUCTION WORKER Height 156.2 cm (5' 1.5 ) 01/18/2024 11:03 AM CS T Body Mass Index 28.63 01/18/2024 11:03 AM FOOD PRODUCTION WORKER Plan of Treatment Health Maintenance Due Date Last Done Comments Depression Screening 1943 Fall Risk Assessment 1945 Osteoporosis Screening-Bone Density Scan 1945 Hepatitis B Screening 1961 Well Visit 65+ 02/20/2008 Pneumococcal vaccine 65+ (2 of 2 - PCV) 12/15/2011 12/14/2010 Zoster Vaccine (2 of 3) 02/14/2013 12/20/2012 Influenza Vaccine (#1) 2023 0, 01/10/2019, 01/10/2019, Additional history exists DTaP/Tdap/Td Vaccine (2 - Td or Tdap) 12/25/2025 12/26/2015 Insurance [employer] HMO PPO [employer] HMO PPO Care Teams Communications Tower Technician Relationship Specialty Start Date End Date Arnaldo Dolan MD [address] [facility] [place] [address] PCP - General Internal Medicine 12/08/17
[2024-06-26 10:51] LABS: Iron 134 ug/dL (37-170)
[2024-06-26 10:53] LABS: Alanine Aminotransferase 52 U/L (6-35); Albumin Level 4.5 g/dL (3.5-5.1); Alkaline Phosphatase 86 U/L (38-126); Anion Gap 5 mmol/L (4-12); Aspartate Amino Transferase 51 U/L (14-36); Bilirubin,Total 0.7 mg/dL (0.2-1.3); Blood Urea Nitrogen 12 mg/dL (7-17); Calcium 8.9 mg/dL (8.4-10.2); Carbon Dioxide 33 mmol/L (22-30); Chloride 102 mmol/L (98-107); Estimated Glomerular Filt Rate > 60; Glucose 74 mg/dL (65-110); Sodium 140 mmol/L (137-145)
[2024-06-26 11:05] LABS: Percent Iron Saturation 33 % (20-50)
[2024-06-26 11:53] LABS: Vitamin B12 > 1000.0 pg/mL (239-931)
[2024-06-26 12:04] LABS: Folic Acid > 20.0 ng/mL (2.76->20)
== END 2024-06-26 09:13 | disposition home or self-care (01) ==
LOC: ANHLAB 09:14
PROVIDERS: PCP Internal Medicine; Visit Provider Internal Medicine Hematology & Oncology
DX: D69.59 Other secondary thrombocytopenia (principal)
CPT/HCPCS: 36415; 80053; 82607; 82728; 82746; 83540; 83550; 85025

== ENCOUNTER 2024-10-09 07:10 | Outpatient (CLI) | payer MEDICARE, SELFPAY ==
--- NOTE | ~2024-10-09 | MM_ITS ---
EXAMINATION: MM screening [facility] BI w akash HISTORY: Screening mammogram TECHNIQUE: Craniocaudal and mediolateral oblique 3-D tomosynthesis images were obtained and synthetic 2-D images were generated. CAD analysis was submitted and interpreted. COMPARISON: 10/10/2023, 10/06/2022, 08/05/2021 BREAST PARENCHYMAL COMPOSITION:Not Dense. There are scattered areas of fibroglandular density. FINDINGS: No suspicious mass, calcification, or architectural distortion are identified in either breast to suggest malignancy. There has been no suspicious interval change. IMPRESSION: No mammographic evidence of malignancy. Recommend routine screening mammography in one year. BI-RADS Category 1: Negative Reviewed, dictated and finalized at location .
== END 2024-10-09 07:11 | disposition home or self-care (01) ==
LOC: ANHIMG 07:12
PROVIDERS: PCP Internal Medicine; Visit Provider Obstetrics & Gynecology
DX: Z12.31 Encounter for screening mammogram for malignant neoplasm of breast (principal)
CPT/HCPCS: 77063; 77067